=== PATIENT | male | born 1945 | race Caucasian/White ===

== ENCOUNTER 2017-04-01 18:35 | Inpatient (IN) | payer MEDICARE, SELFPAY ==
[2017-04-01 18:40] VITALS: BP 120/58; PULSE 129; RESP 20; TEMP 36.8; O2SAT 100
[2017-04-01 18:51] VITALS: BMI 38.0
[2017-04-01 18:55] VITALS: PULSE 129
[2017-04-01 18:57] VITALS: BMI 38.0
--- NOTE | 2017-04-01 19:05 | PCM.HP.STD ---
Problem List (1) Neutropenic fever Status: Acute (2) Sepsis Status: Acute (3) Leukemia Status: Chronic (4) Non-Hodgkin lymphoma Status: Resolved (5) Testicular cancer Status: Resolved (6) Aortic stenosis Status: Chronic (7) HTN (hypertension) Status: Chronic (8) Hyperlipidemia Status: Chronic (9) DM2 (diabetes mellitus, type 2) Status: Chronic History of Present Illness Date of Admission: 04/01/17 Chief Complaint: fever and shortness of breath The patient is a 71 year old M presents with fever and shortness of breath. Symptoms began [place] Pamela and have persisted. Patient is become more short of breath. Patient presented to [facility] with these complaints. Patient had chest x-ray that was unremarkable. Patient was found to be pancytopenic. Case was discussed with Dr. Eller, on-call for the patient's oncologist, Dr. Hill, and stated that he would see the patient in consultation at the patient was transferred to [place]. Given the patient's neutropenia, patient received vancomycin and meropenem. Additionally, the patient received IV fluids as well as Tylenol. Patient was requesting transfer to [facility]. Patient denies any sick contacts that he is aware of. Patient has been recently undergone his second round of chemotherapy for leukemia, unspecified type per the patient,. His last chemotherapy was about 7 days ago. Patient has been coughing and he is short of breath. Says he gets more short of breath when his fever goes up. He denies any rashes that he is aware of. Does state that he is congested up in his head. [] Past Medical History Past Medical History (Chronic Problems): Chronic Problems Leukemia (Chronic) Aortic stenosis (Chronic) HTN (hypertension) (Chronic) Hyperlipidemia (Chronic) DM2 (diabetes mellitus, type 2) (Chronic) Allergies Penicillins [PCN] Allergy (Verified 03/20/17 08:37) Other Sulfa (Sulfonamide Antibiotics) Allergy (Verified 03/20/17 08:37) Rash gabapentin Adverse Reaction (Verified 03/20/17 08:37) Other Home Medications: Ambulatory Orders Medication Instructions Recorded Allopurinol [Zyloprim] 300 mg PO DAILY 07/24/14 Clopidogrel Bisulfate [Plavix] 75 mg PO DAILY 07/24/14 Diltiazem HCl [Diltiazem ER] 1 tablet PO DAILY 07/24/14 Metformin(XR) [Glucophage Xr] 500 mg PO BID 07/24/14 Quinapril HCl [Accupril] 40 mg PO DAILY 07/24/14 Rosuvastatin Calcium [Crestor] 20 mg PO QHS 07/24/14 Duloxetine Hcl [Cymbalta] 60 mg PO QHS 03/15/17 Ergocalciferol [Vitamin D] 50,000 unit PO Q7D 03/15/17 Ferrous Sulfate [Iron] 325 mg PO BID 03/15/17 Furosemide [Lasix] 40 mg PO DAILY 03/15/17 Multivitamin [Multiple Vitamins] 1 each PO DAILY 03/15/17 Nitroglycerin [Nitrostat] 0.4 mg SUBLINGUAL Q5M PRN 03/15/17 Ondansetron [Zofran] 8 mg PO Q8H PRN PRN 03/15/17 Paroxetine HCl [Paxil] 30 mg PO DAILY 03/15/17 TraMADol [Ultram (G)] 50 mg PO Q6H PRN PRN 03/15/17 Psychiatric History: Depression Smoking Status: Never smoker Tobacco Use: Non-smoker Alcohol: None Drugs: None - *Family History Maternal History Items: Heart Disease - of a ruptured aneurysm Paternal History Items: Heart Disease Review of Systems Constitutional: Reports: Chills, Fever, Malaise, Weakness, Fatigue. Denies: Night Sweats Eyes: Denies: Blurred vision, Double vision HEENT: Reports: Nasal Congestion, Sore Throat. Denies: Head Aches, Sinus Congestion, Sinus Drainage Cardiovascular: Denies: Chest Pain, Palpitations Respiratory: Reports: Cough, Shortness of Breath Gastrointestinal: Denies: Abdominal Pain, Nausea, Vomiting Genitourinary: Denies: Dysuria, Incontinence Musculoskeletal: Denies: Joint Pain, Joint Tenderness Skin: Denies: Rash, Wounds Neurological: Denies: Numbness, Tingling, Focal weakness Psychiatric: Reports: Depression. Denies: Anxiety Endocrine: Denies: Change in Body Habitus, Heat/ Cold Intolerance Hematologic/ Lymphatic: Denies: Easy Bruising, Easy Bleeding, Hx of blood clot VTE Information - Inpt Only VTE Present on Admission: No VTE Mechan Device Prophylaxis: SCD's VTE Pharm Prophylaxis ordered?: No Patient Problems: Active and Suspected Problems Neutropenic fever (Acute) Sepsis (Acute) - Physical Exam General: Alert, Cooperative, No apparent distress, Well developed, Well nourished HEENT: Atraumatic, Normocephalic, - - Some blood on the medial sclera of the right eye not involving the iris or pupil. Oral: Moist Mucosa, No Gingival or Mucosal Lesions/ Ulcerations Neck: No Nodes, Thyroid Normal Size and Texture Lungs: No rhonchi, No wheeze, Diminished Cardiovascular: Regular rate, Regular Rhythm, Normal S1, Normal S2, No murmurs Abdomen: Bowel Sounds Present, Soft, Non Tender, Non-Distended, No Hepato-splenomegaly, Obese Extremities: No edema, No Calf Tenderness Skin: No rashes, No breakdown Musculoskeletal: No Tenderness to Palpation of Joints or Extremities, No Muscle Wasting Neurological: Neuro grossly intact, Sensory exam intact to light touch and pain Psych/Mental Status: Normal Affect, Appropriate Vital Signs Temp Pulse Resp BP Pulse Ox 36.8 C 129 H 20 H 120/58 L 100 04/01/17 18:40 04/01/17 18:40 04/01/17 18:40 04/01/17 18:40 04/01/17 18:40 Oxygen Flow Rate 2 Oxygen Delivery Method Nasal Cannula Weight: 113.4 kg Body Mass Index (BMI) 38.0 Chest x-ray report from [facility] was unremarkable. CBC showed a white count of 1.2, hemoglobin 7.9, platelets 84. Patient had 12 bands. Influenza a and B were negative. D-dimer was 0.65 Urinalysis was unremarkable BMP showed a sodium 130, potassium 4.5, BUN is 16.9, creatinine of 1. Troponin was 0.6. BNP was 4272 EKG showed sinus tachycardia right bundle branch block left anterior fascicular block. No prior EKGs available to be compared to. Assessment/Plan Active and Suspected Problems Neutropenic fever (Acute) Sepsis (Acute) 1. Sepsis present on admission Unclear source. Perform blood cultures. 2. Neutropenic fever Continue with meropenem, vancomycin not further necessary at this time. Follow-up cultures 3. Neutropenia I do not have baseline labs of this patient to compare to Dr. Eller will be on consultation 4. Leukemia Last chemotherapy was about 1 week ago Consult oncology for further input 5. Elevated troponin Cycle troponins Cardiology consult Echocardiogram May be due to demand from the patient's sepsis and underlying infection 6. Diabetes mellitus type 2 hold metformin for now NovoLog sliding scale for now 7. DVT prophylaxis with SCDs Code Visit Inpatient E&M: 10794 Init Hosp L3
--- NOTE | 2017-04-01 19:15 | HP.PCM_ITS ---
Problem List (1) Neutropenic fever Status: Acute (2) Sepsis Status: Acute (3) Leukemia Status: Chronic (4) Non-Hodgkin lymphoma Status: Resolved (5) Testicular cancer Status: Resolved (6) Aortic stenosis Status: Chronic (7) HTN (hypertension) Status: Chronic (8) Hyperlipidemia Status: Chronic (9) DM2 (diabetes mellitus, type 2) Status: Chronic History of Present Illness Date of Admission: 04/01/17 Chief Complaint: fever and shortness of breath The patient is a 71 year old M presents with fever and shortness of breath. Symptoms began [place] Pamela and have persisted. Patient is become more short of breath. Patient presented to [facility] with these complaints. Patient had chest x-ray that was unremarkable. Patient was found to be pancytopenic. Case was discussed with Dr. Eller, on-call for the patient's oncologist, Dr. Hill, and stated that he would see the patient in consultation at the patient was transferred to [place]. Given the patient's neutropenia, patient received vancomycin and meropenem. Additionally, the patient received IV fluids as well as Tylenol. Patient was requesting transfer to [facility]. Patient denies any sick contacts that he is aware of. Patient has been recently undergone his second round of chemotherapy for leukemia, unspecified type per the patient,. His last chemotherapy was about 7 days ago. Patient has been coughing and he is short of breath. Says he gets more short of breath when his fever goes up. He denies any rashes that he is aware of. Does state that he is congested up in his head. [] Past Medical History Past Medical History (Chronic Problems): Chronic Problems Leukemia (Chronic) Aortic stenosis (Chronic) HTN (hypertension) (Chronic) Hyperlipidemia (Chronic) DM2 (diabetes mellitus, type 2) (Chronic) Allergies Penicillins [PCN] Allergy (Verified 03/20/17 08:37) Other Sulfa (Sulfonamide Antibiotics) Allergy (Verified 03/20/17 08:37) Rash gabapentin Adverse Reaction (Verified 03/20/17 08:37) Other Home Medications: Ambulatory Orders Medication Instructions Recorded Allopurinol [Zyloprim] 300 mg PO DAILY 07/24/14 Clopidogrel Bisulfate [Plavix] 75 mg PO DAILY 07/24/14 Diltiazem HCl [Diltiazem ER] 1 tablet PO DAILY 07/24/14 Metformin(XR) [Glucophage Xr] 500 mg PO BID 07/24/14 Quinapril HCl [Accupril] 40 mg PO DAILY 07/24/14 Rosuvastatin Calcium [Crestor] 20 mg PO QHS 07/24/14 Duloxetine Hcl [Cymbalta] 60 mg PO QHS 03/15/17 Ergocalciferol [Vitamin D] 50,000 unit PO Q7D 03/15/17 Ferrous Sulfate [Iron] 325 mg PO BID 03/15/17 Furosemide [Lasix] 40 mg PO DAILY 03/15/17 Multivitamin [Multiple Vitamins] 1 each PO DAILY 03/15/17 Nitroglycerin [Nitrostat] 0.4 mg SUBLINGUAL Q5M PRN 03/15/17 Ondansetron [Zofran] 8 mg PO Q8H PRN PRN 03/15/17 Paroxetine HCl [Paxil] 30 mg PO DAILY 03/15/17 TraMADol [Ultram (G)] 50 mg PO Q6H PRN PRN 03/15/17 Psychiatric History: Depression Smoking Status: Never smoker Tobacco Use: Non-smoker Alcohol: None Drugs: None - *Family History Maternal History Items: Heart Disease - of a ruptured aneurysm Paternal History Items: Heart Disease Review of Systems Constitutional: Reports: Chills, Fever, Malaise, Weakness, Fatigue. Denies: Night Sweats Eyes: Denies: Blurred vision, Double vision HEENT: Reports: Nasal Congestion, Sore Throat. Denies: Head Aches, Sinus Congestion, Sinus Drainage Cardiovascular: Denies: Chest Pain, Palpitations Respiratory: Reports: Cough, Shortness of Breath Gastrointestinal: Denies: Abdominal Pain, Nausea, Vomiting Genitourinary: Denies: Dysuria, Incontinence Musculoskeletal: Denies: Joint Pain, Joint Tenderness Skin: Denies: Rash, Wounds Neurological: Denies: Numbness, Tingling, Focal weakness Psychiatric: Reports: Depression. Denies: Anxiety Endocrine: Denies: Change in Body Habitus, Heat/ Cold Intolerance Hematologic/ Lymphatic: Denies: Easy Bruising, Easy Bleeding, Hx of blood clot VTE Information - Inpt Only VTE Present on Admission: No VTE Mechan Device Prophylaxis: SCD's VTE Pharm Prophylaxis ordered?: No Patient Problems: Active and Suspected Problems Neutropenic fever (Acute) Sepsis (Acute) - Physical Exam General: Alert, Cooperative, No apparent distress, Well developed, Well nourished HEENT: Atraumatic, Normocephalic, - - Some blood on the medial sclera of the right eye not involving the iris or pupil. Oral: Moist Mucosa, No Gingival or Mucosal Lesions/ Ulcerations Neck: No Nodes, Thyroid Normal Size and Texture Lungs: No rhonchi, No wheeze, Diminished Cardiovascular: Regular rate, Regular Rhythm, Normal S1, Normal S2, No murmurs Abdomen: Bowel Sounds Present, Soft, Non Tender, Non-Distended, No Hepato- splenomegaly, Obese Extremities: No edema, No Calf Tenderness Skin: No rashes, No breakdown Musculoskeletal: No Tenderness to Palpation of Joints or Extremities, No Muscle Wasting Neurological: Neuro grossly intact, Sensory exam intact to light touch and pain Psych/Mental Status: Normal Affect, Appropriate Vital Signs Temp Pulse Resp BP Pulse Ox 36.8 C 129 H 20 H 120/58 L 100 04/01/17 18:40 04/01/17 18:40 04/01/17 18:40 04/01/17 18:40 04/01/17 18:40 Oxygen Flow Rate 2 Oxygen Delivery Method Nasal Cannula Weight: 113.4 kg Body Mass Index (BMI) 38.0 Chest x-ray report from [facility] was unremarkable. CBC showed a white count of 1.2, hemoglobin 7.9, platelets 84. Patient had 12 bands. Influenza a and B were negative. D-dimer was 0.65 Urinalysis was unremarkable BMP showed a sodium 130, potassium 4.5, BUN is 16.9, creatinine of 1. Troponin was 0.6. BNP was 4272 EKG showed sinus tachycardia right bundle branch block left anterior fascicular block. No prior EKGs available to be compared to. Assessment/Plan Active and Suspected Problems Neutropenic fever (Acute) Sepsis (Acute) 1. Sepsis present on admission Unclear source. Perform blood cultures. 2. Neutropenic fever Continue with meropenem, vancomycin not further necessary at this time. Follow-up cultures 3. Neutropenia I do not have baseline labs of this patient to compare to Dr. Eller will be on consultation 4. Leukemia Last chemotherapy was about 1 week ago Consult oncology for further input 5. Elevated troponin Cycle troponins Cardiology consult Echocardiogram May be due to demand from the patient's sepsis and underlying infection 6. Diabetes mellitus type 2 hold metformin for now NovoLog sliding scale for now 7. DVT prophylaxis with SCDs Code Visit Inpatient E&M: 36218 Init Hosp L3
--- NOTE | 2017-04-01 19:32 | ECHOCS_ITS ---
Reason For Study: Elevated Troponins Procedure This was a 2D Doppler, Color Flow transthoracic echocardiogram. Exam performed portable in patient room. Left Ventricle Normal LV size. Mild concentric left ventricular hypertrophy. D shaped septum in diastole. The estimated ejection fraction is 55 %. No regional wall motion abnormalities noted. Right Ventricle Moderately dilated right ventricle. Mild to moderate global right ventricular systolic dysfunction. Mitral Valve There is moderate mitral annular calcification. Moderate (2+) eccentric mitral valve insufficiency. Tricuspid Valve Normal tricuspid valve. Mild to moderate (1-2+) tricuspid valve insufficiency. Pulmonary artery systolic pressure is 45 mmHg. Mild pulmonary hypertension. Aortic Valve Trisinus/trileaflet aortic valve. Mild focal aortic valve calcification. Peak aortic valve gradient 42 mmHg. Mean aortic valve gradient 22 mmHg. Moderate aortic stenosis. Calculated aortic valve area (continuity equation) is 1.0 cm2. Pulmonic Valve Normal pulmonic valve. Mild (1+) pulmonic valve insufficiency. Great Vessels Normal aortic root. The pulmonary artery is normal size. Normal inferior vena cava. Pericardium/Pleural No pericardial effusion. Medication Diluted definity 3ml given slow IV push to enhance endocardial definition. MMode/2D Measurements & Calculations LVIDd: 4.9 cm IVSd: 1.3 cm LVOT diam: 2.0 cm LVIDs: 3.2 cm LVPWd: 1.3 cm LVOT area: 3.2 cm2 RVDd: 3.7 cm FS: 34.1 % Ao root diam: 3.3 cm Aortic Valve Planimetry: 1.0 cm2 ACS: 0.97 cm LA dimension: 4.4 cm Time Measurements MV dec time: 0.23 sec Doppler Measurements & Calculations MV E max eric: 176.1 cm/sec Lat Peak E' Eric: 12.0 cm/sec MV V2 max: 213.8 cm/sec MV A max eric: 164.9 cm/sec E/E' lat: 14.7 MV max P.3 mmHg MV E/A: 1.1 MV V2 mean: 138.7 cm/sec MV mean P.1 mmHg MV V2 VTI: 52.0 cm MVA(VTI): 1.4 cm2 MV P1/2t max eric: 213.8 cm/sec Ao V2 max: 325.7 cm/sec LV V1 max: 103.9 cm/sec MV P1/2t: 88.7 msec Ao max P.4 mmHg LV V1 max P.3 mmHg MV dec slope: 706.3 cm/sec2 Ao V2 mean: 213.0 cm/sec LV V1 mean P.5 mmHg MVA(P1/2t): 2.5 cm2 Ao mean P.9 mmHg LV V1 mean: 74.6 cm/sec Ao V2 VTI: 62.1 cm LV V1 VTI: 23.3 cm CONNOR(I,D): 1.2 cm2 CONNOR(V,D): 1.0 cm2 MR max eric: 485.3 cm/sec SV(LVOT): 74.5 ml PA V2 max: 118.5 cm/sec MR max P.2 mmHg MR mean eric: 366.8 cm/sec MR mean P.3 mmHg MR VTI: 103.2 cm TR max eric: 317.4 cm/sec TR max P.3 mmHg Interpretation Summary Normal LV size. Mild concentric left ventricular hypertrophy. The estimated ejection fraction is 55 %. Moderately dilated right ventricle. Moderate aortic stenosis. Mild focal aortic valve calcification. D shaped septum in diastole. Mild pulmonary hypertension. Ordering Physician: Tavo Rick Referring Physician: Denae Goldstein Performed By: Spencer Burton RCS
[2017-04-01 21:16] VITALS: BP 122/53; PULSE 125; RESP 20; TEMP 37.6; O2SAT 100
--- NOTE | 2017-04-01 21:42 | EKG12_ITS ---
Test Reason : ELEV TROP Blood Pressure : / mmHG Vent. Rate : 121 BPM Atrial Rate : 121 BPM P-R Int : 130 ms QRS Dur : 146 ms QT Int : 354 ms P-R-T Axes : 068 -56 049 degrees QTc Int : 502 ms Sinus tachycardia Right bundle branch block Left anterior fascicular block Bifascicular block Abnormal ECG No previous ECGs available Confirmed by DAVID JOHNSON, REHAN ([id number]), film editor supervisor JOSELUIS GILBERT ([id number]) on 04/08/2017 4:19:24 PM Referred By: DR SANDS Confirmed By:REHAN HERNANDEZ MD
[2017-04-01] MEDS: dilTIAZem CD 180 MG Capsule PO (22:11)
[2017-04-01] MEDS: Atorvastatin Calcium 40 MG Tablet PO (22:11)
[2017-04-01] MEDS: Ferrous Sulfate 325 MG Tablet PO (22:11)
[2017-04-01] MEDS: Aspirin 81 MG TAB.CHEW PO (22:11)
[2017-04-01] MEDS: DULoxetine Hcl 60 MG Capsule PO (22:11)
[2017-04-01] MEDS: Furosemide 40 MG Tablet PO (22:12)
[2017-04-01] MEDS: PARoxetine 10 MG Tablet 30 MG PO (22:12)
[2017-04-01] MEDS: Clopidogrel Bisulfate 75 MG Tablet PO (22:13)
[2017-04-01] MEDS: Allopurinol 300 MG Tablet PO (22:13)
[2017-04-01] MEDS: Acetaminophen 325 MG Tablet 650 MG PO (22:55)
[2017-04-01 22:56] LABS: Bedside Glucose 134 mg/dL (70-110)
[2017-04-01 23:37] VITALS: PULSE 121
[2017-04-02] VITALS (25 sets, daily range): BP systolic 74–111; BP diastolic 35–56; PULSE 83–125; RESP 18–30; TEMP 36.4–37.6; O2SAT 94–100
--- NOTE | 2017-04-02 00:23 | NURSING ---
Pill found on pts floor by resp. therapy. Confirmed with pharmacy that pill is a lisinopril 40mg tablet. Will get pt replacement dosing.
[2017-04-02] MEDS: Lisinopril 40 MG Tablet PO (00:33)
[2017-04-02 01:02] LABS: BNP,B-Type NATRIURETIC PEPTIDE 563.4 pg/mL (0-100)
[2017-04-02 04:08] LABS: Bacteria 0 SEEN /hpf (None Seen); Mucous, Urine 0 SEEN /hpf (<or=2+); Red Blood Cells-Urine 0 SEEN /hpf (0-5); White Blood Cells 0 SEEN /hpf (0-5)
[2017-04-02 04:11] LABS: Color, Urine Yellow (Yellow); Glucose, Dipstick Normal (Normal); Ketone-Dipstick Negative (Negative); Leukocyte Esterase-Dipstick Negative /ul (Negative); Nitrite-Dipstick Negative (Negative); Occult Blood-Urine 10 /ul (Negative); Protein-Dipstick 30 mg/dl (Negative); Urine Bilirubin Dipstick Negative (Negative); Urine Clarity Clear (Clear); Urine Urobilinogen 1 mg/dl (Normal)
[2017-04-02 04:14] LABS: Absolute Lymphocyte Count 0.46 X10^3/ul (0.83-4.51); Absolute Neutrophil Count 0.5 X10^3/uL (2.0-7.7); Eosinophil# 0.01 X10^3/uL; Eosinophils% 0.9 % (0-5); Hematocrit 21.6 % (40-54); Hemoglobin 7.1 g/dl (13.0-16.5); Lymphocyte # 0.46 X10^3/ul (4.0); Lymphocyte % 43.4 % (19-41); Mean Corp Hgb Conc 32.9 g/gl (32-36); Mean Corpuscular Hgb 35.9 pg (27.0-32.0); Mean Corpuscular Volume 109.1 fL (80-94); Mean Platelet Vol. 9.4 fl (6.2-12.0); Monocyte# 0.09 X10^3/uL; Monocyte% 8.5 % (0-10); Neutrophil # 0.49 X10^3/uL (2.7-7.7); Neutrophil % 46.3 % (47-70); Platelet Count 81 K/mm3 (150-450); RBC Distribution Width CV 19.9 % (11.6-14.6); Red Blood Count 1.98 M/mm3 (4.6-6.2)
[2017-04-02 04:16] LABS: Differential Indicated SCAN CRITERIA MET; POSITIVE COUNT YES; POSITIVE DIFFERENTIAL YES; POSITIVE MORPHOLOGY YES; White Blood Count 1.1 K/mm3 (4.4-11.0)
[2017-04-02 04:18] LABS: Squamous Epithelial Cells - UA 0-5 SEEN /hpf (0-5)
[2017-04-02 04:20] LABS: Anion Gap 9 (5-15); BUN 17 mg/dL (7-18); Calcium,Total 8.9 mg/dL (8.5-10.1); Chloride 96 mmol/L (98-107); Cholesterol 91 mg/dL (200); EST Glomerular Filtration Rate 79 mL/min (>60); Est Glom Filt Rate - Afr Amer 95 mL/min (>60); Estimated Creatinine Clearance 67.45 ml/min; Glucose 142 mg/dL (70-110); High Density Lipoprotein 51 mg/dL; Potassium 3.7 mmol/L (3.5-5.1); Sodium Level 130 mmol/L (136-145); Triglycerides 60 mg/dL; Very Low Density Lipoprotein 12 mg/dL (5-40)
[2017-04-02] MEDS: Ipratropium/Albuterol Sulfate 3 ML AMPUL.NEB INHALATION ×4 (04:39→19:27)
[2017-04-02] MEDS: Furosemide 40 MG/4 ML Vial IV (04:57)
[2017-04-02 05:11] LABS: Anisocytosis 1+; Macrocytosis 2+; Platelet Estimate MOD DEC (ADEQ)
[2017-04-02] MEDS: Acetaminophen 325 MG Tablet 650 MG PO ×3 (05:50→19:04)
[2017-04-02 06:56] LABS: Bedside Glucose 173 mg/dL (70-110)
--- NOTE | 2017-04-02 08:02 | NURSING ---
phone call received from [facility], patient test back positive for flu.
--- NOTE | 2017-04-02 08:08 | CON.PCM_ITS ---
Reason for Consult Date of Consultation: 04/02/17 History of Present Illness: The patient is a 71 year old M with no previous cardiac history but recently diagnosed with leukemia who is being followed by the oncologist. He presented to an outside hospital because he was not feeling well he was noted to be pancytopenic and for reasons that are not entirely clear her troponin was obtained which were noted to be abnormal. He was therefore referred for cardiology to see. He is denied any chest pain shortness of breath or paroxysmal nocturnal dyspnea he has been incredibly weak he has not had any palpitations no differential dizziness no diaphoresis no near syncope or syncope. This morning his overall condition is essentially unchanged. [] Past Medical History Allergies/Adverse Reactions: Allergies Penicillins [PCN] Allergy (Verified 03/20/17 08:37) Other Sulfa (Sulfonamide Antibiotics) Allergy (Verified 03/20/17 08:37) Rash gabapentin Adverse Reaction (Verified 03/20/17 08:37) Other Home Medications: Ambulatory Orders Medication Instructions Recorded Allopurinol [Zyloprim] 300 mg PO DAILY 07/24/14 Clopidogrel Bisulfate [Plavix] 75 mg PO DAILY 07/24/14 Diltiazem HCl [Diltiazem ER] 1 tablet PO DAILY 07/24/14 Metformin(XR) [Glucophage Xr] 500 mg PO BID 07/24/14 Quinapril HCl [Accupril] 40 mg PO DAILY 07/24/14 Rosuvastatin Calcium [Crestor] 20 mg PO QHS 07/24/14 Duloxetine Hcl [Cymbalta] 60 mg PO QHS 03/15/17 Ergocalciferol [Vitamin D] 50,000 unit PO Q7D 03/15/17 Ferrous Sulfate [Iron] 325 mg PO BID 03/15/17 Furosemide [Lasix] 40 mg PO DAILY 03/15/17 Multivitamin [Multiple Vitamins] 1 each PO DAILY 03/15/17 Nitroglycerin [Nitrostat] 0.4 mg SUBLINGUAL Q5M PRN 03/15/17 Ondansetron [Zofran] 8 mg PO Q8H PRN PRN 03/15/17 Paroxetine HCl [Paxil] 30 mg PO DAILY 03/15/17 TraMADol [Ultram (G)] 50 mg PO Q6H PRN PRN 03/15/17 Past Medical History (Chronic Problems): Chronic Problems Leukemia (Chronic) Aortic stenosis (Chronic) HTN (hypertension) (Chronic) Hyperlipidemia (Chronic) DM2 (diabetes mellitus, type 2) (Chronic) Psychiatric History: Depression - *Family History Maternal History Items: Heart Disease - of a ruptured aneurysm Paternal History Items: Heart Disease Smoking Status: Never smoker Tobacco Use: Non-smoker Alcohol: None Drugs: None Review of Systems - Review of Systems General: Reports: Fever, Fatigue, Malaise, Weakness. Denies: Night Sweats Cardiovascular: Reports: Shortness of Breath, Shortness of Breath with Exertion. Denies: Chest Discomfort, Orthopnea, PND, Peripheral Edema, Palpitations, Lightheadedness, Dizziness, Near Syncope, Syncope Respiratory: Reports: Cough. Denies: Sputum Production, Hemoptysis Gastrointestinal: Denies: Hematemesis, Hematochezia, Melena Genitourinary: Denies: Dysuria, Hematuria Skin: Denies: Rash Subjectve: Pleasant gentleman in no apparent distress Objective: Vital Signs Temp Pulse Resp BP Pulse Ox 98.3 F 122 H 30 H 111/41 L 98 04/02/17 04:23 04/02/17 04:40 04/02/17 04:40 04/02/17 04:23 04/02/17 04:40 Oxygen Flow Rate 3 Oxygen Delivery Method Nasal Cannula Weight: 250 lb 0.067 oz Body Mass Index (BMI) 38.0 Intake and Output for Last 24 Hours 03/31/17 04/01/17 04/02/17 23:59 23:59 23:59 Intake Total 240 / 240 610 / 610 Output Total 200 / 200 400 / 400 Balance 40 / 40 210 / 210 General: Awake, Alert, Oriented x 3 HEENT: PERRL, EOMI, Sclera Non Icteric Neck: Supple, Good ROM, No Lymph Node Enlargement Lungs: Clear to auscultation Cardiovascular: Regular Rhythm, Normal S1, Normal S2, No Rubs, No Gallops Murmur Murmur: Grade 1/6, Early Systolic, LLSB Vascular: No Carotid Bruits, Normal Femoral Pulses, Normal Radial Pulses, Normal Dorsalis Pedal Pulse, Normal Posterior Tibial Pulses Abdomen: Bowel Sounds Present, Soft, Non Tender, No HSM, No Organomegaly Extremities: No Cyanosis, No Clubbing, No edema Neurological: No Focal Motor or Sensory Deficit 04/01/17 20:17: Troponin I 0.67 H* 04/01/17 22:25: Troponin I 0.72 H* 04/01/17 22:25: Urine Color Yellow, Urine Clarity Clear, Urine pH 6.0, Ur Specific [place] 1.020, Urine Protein 30 H, Urine Glucose (UA) Normal, Urine Ketones Negative, Urine Occult Blood 10 H, Urine Nitrite Negative, Urine Bilirubin Negative, Urine Urobilinogen 1 H, Ur Leukocyte Esterase Negative, Urine RBC 0 SEEN, Urine WBC 0 SEEN 04/02/17 00:13: B-Natriuretic Peptide 563.4 H 04/02/17 03:18: Sodium 130 L, Potassium 3.7, Chloride 96 L, Carbon Dioxide 25.0 , Anion Gap 9, BUN 17, Creatinine 1.00, Est GFR (MDRD) Af Amer 95, Est GFR (MDRD ) Non-Af 79, BUN/Creatinine Ratio 17.0, Glucose 142 H, Calcium 8.9, Troponin I 0.88 H*, Triglycerides 60, Cholesterol 91, LDL Cholesterol 28, VLDL Cholesterol 12, HDL Cholesterol 51 04/02/17 03:18: WBC 1.1 L*, RBC 1.98 L, Hgb 7.1 L, Hct 21.6 L, MCV 109.1 H, MCH 35.9 H, MCHC 32.9, RDW 19.9 H, RDW Differential 79.0 H, Plt Count 81 L, MPV 9.4 , Immature Gran % (Auto) 0.900, Neut % (Auto) 46.3 L, Lymph % (Auto) 43.4 H, [place] % (Auto) 8.5, Eos % (Auto) 0.9, Baso % (Auto) 0.0, Absolute Neuts (auto) 0.5 L, Total Counted Not Reportable Rhythm: EKG: Sinus tachycardia with a right bundle branch block and left anterior fascicular block Assessment/Plan 1. Abnormal cardiac enzymes-NSTEMI The above is likely secondary to demand ischemia with fixed coronary artery disease. At this time the patient is asymptomatic and my recommendation would be to keep him on statin , control his heart rate and obtain an echocardiogram to assess his left ventricular function. Further recommendations will be made based on the results of the above tests. 2. 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 He is on Cardizem and we may want to optimize the above. 3. Valvular heart disease with aortic stenosis. Does have evidence of aortic stenosis. We will obtain an echocardiogram to assess his left ventricular function. Further recommendations will be made based on the basis of the above. Thank you for allowing me to participate in his care.
--- NOTE | 2017-04-02 08:08 | PCM.CONS.B ---
- Consult Date of Consult: 04/02/[address] Zack rahman patient with acute leukemia/MDS present with febrile neutropenia/sepsis. My final recommendation will be communicated by electronic medical record and to Dr. Landis - Reason for Consult Sepsis/neutropenic fever Anemia Acute myelogenous leukemia/MDS receiving chemotherapy-[place] History of Present Illness Date of Admission: 04/01/17 Chief Complaint: fever and shortness of breath The patient is a 71 year old M presents with fever and shortness of breath. Symptoms began [place] Pam[place] and have persisted. Patient is become more short of breath. Patient presented to [facility] with shortness of breath. Patient had chest x-ray that was unremarkable & he denies any chest pain. Patient was found to be pancytopenic (anemia and neutropenia). The patient was transferred to [place]. Given the patient's neutropenia, patient received vancomycin and meropenem in ER. Additionally, the patient received IV fluids as well as Tylenol. His initial respiratory viral panel was positive for influenza. Patient has been recently undergone his second round of chemotherapy- Azacytidine for acute leukemia / MDS His last chemotherapy was about 8 days ago (oren). Patient has been coughing and he is short of breath x 3-4 days. Says he gets more short of breath when his fever day before admission. He denies any rashes, headaches or urinary symptom. Past Medical History Past Medical History (Chronic Problems): Chronic Problems Acute Leukemia / MDS (Chronic) Aortic stenosis (Chronic) HTN (hypertension) (Chronic) Hyperlipidemia (Chronic) DM2 (diabetes mellitus, type 2) (Chronic) Allergies Penicillins [PCN] Allergy (Verified 03/20/17 08:37) Other Sulfa (Sulfonamide Antibiotics) Allergy (Verified 03/20/17 08:37) Rash gabapentin Adverse Reaction (Verified 03/20/17 08:37) Other Home Medications: Ambulatory Orders Medication Instructions Recorded Allopurinol [Zyloprim] 300 mg PO DAILY 07/24/14 Clopidogrel Bisulfate [Plavix] 75 mg PO DAILY 07/24/14 Diltiazem HCl [Diltiazem ER] 1 tablet PO DAILY 07/24/14 Metformin(XR) [Glucophage Xr] 500 mg PO BID 07/24/14 Quinapril HCl [Accupril] 40 mg PO DAILY 07/24/14 Rosuvastatin Calcium [Crestor] 20 mg PO QHS 07/24/14 Duloxetine Hcl [Cymbalta] 60 mg PO QHS 03/15/17 Ergocalciferol [Vitamin D] 50,000 unit PO Q7D 03/15/17 Ferrous Sulfate [Iron] 325 mg PO BID 03/15/17 Furosemide [Lasix] 40 mg PO DAILY 03/15/17 Multivitamin [Multiple Vitamins] 1 each PO DAILY 03/15/17 Nitroglycerin [Nitrostat] 0.4 mg SUBLINGUAL Q5M PRN 03/15/17 Ondansetron [Zofran] 8 mg PO Q8H PRN PRN 03/15/17 Paroxetine HCl [Paxil] 30 mg PO DAILY 03/15/17 TraMADol [Ultram (G)] 50 mg PO Q6H PRN PRN 03/15/17 Psychiatric History: Depression Smoking Status: Never smoker Tobacco Use: Non-smoker Alcohol: None Drugs: None - *Family History Maternal History Items: Heart Disease - of a ruptured aneurysm Paternal History Items: Heart Disease Review of Systems Constitutional: Reports: Chills, Fever, Malaise, Weakness, Fatigue x one week Denies: Night Sweats Eyes: Denies: Blurred vision, Double vision HEENT: Reports: Nasal Congestion, Sore Throat. Denies: Head Aches, Sinus Congestion, Sinus Drainage Cardiovascular: Denies: Chest Pain, Palpitations Respiratory: Reports: Cough, Shortness of Breath Gastrointestinal: Denies: Abdominal Pain, Nausea, Vomiting Genitourinary: Denies: Dysuria, Incontinence Musculoskeletal: Denies: Joint Pain, Joint Tenderness Skin: Denies: Rash, Wounds Neurological: Denies: Numbness, Tingling, Focal weakness Psychiatric: Reports: Depression. Denies: Anxiety Endocrine: Denies: Change in Body Habitus, Heat/ Cold Intolerance Hematologic/ Lymphatic: Denies: Easy Bruising, Easy Bleeding, Hx of blood clot VTE Information - Inpt Only VTE Present on Admission: No VTE Mechan Device Prophylaxis: SCD's VTE Pharm Prophylaxis ordered?: No Patient Problems: Active and Suspected Problems Neutropenic fever (Acute) Sepsis (Acute) Symptomatic anemia (Acute) Fever, malaise and weakness (Acute) - Physical Exam General: Alert, Cooperative, No apparent distress, Well developed, Well nourished HEENT: Atraumatic, Normocephalic, - - Some blood on the medial sclera of the right eye not involving the iris or pupil. Oral: Moist Mucosa, No Gingival or Mucosal Lesions/ Ulcerations no petechiae Neck: No Nodes, Thyroid Normal Size and Texture Lungs: No rhonchi, No wheeze, Diminished + basilar rales Cardiovascular: Regular rate, Regular Rhythm, Normal S1, Normal S2, No murmurs Abdomen: Bowel Sounds Present, Soft, Non Tender, Non-Distended, No Hepato-splenomegaly, Obese Extremities: No edema, No Calf Tenderness Skin: No rashes, No breakdown Musculoskeletal: No Tenderness to Palpation of Joints or Extremities, No Muscle Wasting Neurological: Neuro grossly intact, Sensory exam intact to light touch and pain Psych/Mental Status: Normal Affect, Appropriate Vital Signs Temp Pulse Resp BP Pulse Ox 36.8 C 129 H 20 H 120/58 L 100 04/01/17 18:40 04/01/17 18:40 04/01/17 18:40 04/01/17 18:40 04/01/17 18:40 Oxygen Flow Rate 2 Oxygen Delivery Method Nasal Cannula Weight: 113.4 kg Body Mass Index (BMI) 38.0 [facility] from [facility] was unremarkable. EKG showed sinus tachycardia right bundle branch block left anterior fascicular block. No prior EKGs available to be compared to. Laboratory Results - last 24 hr 04/01/17 04/01/17 04/01/17 20:17 22:25 22:25 WBC RBC Hgb Hct MCV MCH MCHC RDW RDW Differential Plt Count MPV Immature Gran % (Auto) Neut % (Auto) Lymph % (Auto) [place] % (Auto) Eos % (Auto) Baso % (Auto) Absolute Neuts (auto) Absolute Lymphs (auto) Total Counted Differential Comment Diff Path Review Platelet Estimate Anisocytosis Macrocytosis Sodium Potassium Chloride Carbon Dioxide Anion Gap BUN Creatinine Estim Creat Clear Calc Est GFR (MDRD) Af Amer Est GFR (MDRD) Non-Af BUN/Creatinine Ratio Glucose Calcium Troponin I 0.67 H* 0.72 H* B-Natriuretic Peptide Triglycerides Cholesterol LDL Cholesterol VLDL Cholesterol HDL Cholesterol Urine Color Yellow Urine Clarity Clear Urine pH 6.0 Ur Specific [place] 1.020 Urine Protein 30 H Urine Glucose (UA) Normal Urine Ketones Negative Urine Occult Blood 10 H Urine Nitrite Negative Urine Bilirubin Negative Urine Urobilinogen 1 H Ur Leukocyte Esterase Negative Urine RBC 0 SEEN Urine WBC 0 SEEN Ur Squamous Epith Cells 0-5 SEEN Urine Bacteria 0 SEEN Urine Mucus 0 SEEN POC Glucose 04/01/17 04/02/17 04/02/17 22:29 00:13 03:18 WBC RBC Hgb Hct MCV MCH MCHC RDW RDW Differential Plt Count MPV Immature Gran % (Auto) Neut % (Auto) Lymph % (Auto) [place] % (Auto) Eos % (Auto) Baso % (Auto) Absolute Neuts (auto) Absolute Lymphs (auto) Total Counted Differential Comment Diff Path Review Platelet Estimate Anisocytosis Macrocytosis Sodium 130 L Potassium 3.7 Chloride 96 L Carbon Dioxide 25.0 Anion Gap 9 BUN 17 Creatinine 1.00 Estim Creat Clear Calc 67.45 Est GFR (MDRD) Af Amer 95 Est GFR (MDRD) Non-Af 79 BUN/Creatinine Ratio 17.0 Glucose 142 H Calcium 8.9 Troponin I 0.88 H* B-Natriuretic Peptide 563.4 H Triglycerides 60 Cholesterol 91 LDL Cholesterol 28 VLDL Cholesterol 12 HDL Cholesterol 51 Urine Color Urine Clarity Urine pH Ur Specific [place] Urine Protein Urine Glucose (UA) Urine Ketones Urine Occult Blood Urine Nitrite Urine Bilirubin Urine Urobilinogen Ur Leukocyte Esterase Urine RBC Urine WBC Ur Squamous Epith Cells Urine Bacteria Urine Mucus POC Glucose 134 H 04/02/17 04/02/17 03:18 06:49 WBC 1.1 L* RBC 1.98 L Hgb 7.1 L Hct 21.6 L MCV 109.1 H MCH 35.9 H MCHC 32.9 RDW 19.9 H RDW Differential 79.0 H Plt Count 81 L MPV 9.4 Immature Gran % (Auto) 0.900 Neut % (Auto) 46.3 L Lymph % (Auto) 43.4 H [place] % (Auto) 8.5 Eos % (Auto) 0.9 Baso % (Auto) 0.0 Absolute Neuts (auto) 0.5 L Absolute Lymphs (auto) 0.46 L Total Counted Not Reportable Differential Comment Diff Path Review May foll Platelet Estimate MOD DEC Anisocytosis 1+ Macrocytosis 2+ Sodium Potassium Chloride Carbon Dioxide Anion Gap BUN Creatinine Estim Creat Clear Calc Est GFR (MDRD) Af Amer Est GFR (MDRD) Non-Af BUN/Creatinine Ratio Glucose Calcium Troponin I B-Natriuretic Peptide Triglycerides Cholesterol LDL Cholesterol VLDL Cholesterol HDL Cholesterol Urine Color Urine Clarity Urine pH Ur Specific [place] Urine Protein Urine Glucose (UA) Urine Ketones Urine Occult Blood Urine Nitrite Urine Bilirubin Urine Urobilinogen Ur Leukocyte Esterase Urine RBC Urine WBC Ur Squamous Epith Cells Urine Bacteria Urine Mucus POC Glucose 173 H Assessment/Plan Active and Suspected Problems Neutropenic fever (Acute) Sepsis (Acute) Anemia (Acute) 1. Sepsis present on admission Unclear source. Pending blood cultures & urine culture. PLAN: -Monitor CBC daily -Continue meropenem pending blood culture 2. Neutropenic fever Follow-up cultures + Influenza A PLAN: - Start Mycelex 5 x daily - Check MRSA- PCR - Start Tamiflu daily 3. Neutropenia Secondary to acute leukemia and treatment. PLAN: -Neutropenic precaution & respiratory isolation -Monitor count daily. 4. Symptomatic anemia Last transfusion was about 1 month ago PLAN: -Type and cross 2 units irradiated, LD-RBC for transfusion today - Lasix 20mg IV between units - Keep hemoglobin > 8.5 gm/dl because of heart failure. 5. Elevated troponin Myocardial strain from fever and anemia PLAN: -Cardiology consult -Echocardiogram cc: Dr. Win Hill, Dr. Fernando Bar, Dr. Tavo Dixon
--- NOTE | 2017-04-02 08:39 | NURSING ---
EDUCATED ABOUT POSITIVE FOR FLU, EVERYONE NEEDS TO WEAR A MASK
[2017-04-02] MEDS: Ferrous Sulfate 325 MG Tablet PO ×2 (09:59→16:36)
[2017-04-02] MEDS: Allopurinol 300 MG Tablet PO (09:59)
[2017-04-02] MEDS: Multivitamins,Therapeutic Tablet 1 TABLET PO (09:59)
[2017-04-02] MEDS: Oseltamivir Phosphate 75 MG Capsule PO ×2 (10:00→21:29)
[2017-04-02] MEDS: Clotrimazole 10 MG Troche MUCOUS MEM ×4 (10:00→21:29)
[2017-04-02] MEDS: PARoxetine 10 MG Tablet 30 MG PO (10:00)
[2017-04-02] MEDS: dilTIAZem CD 180 MG Capsule PO (10:00)
[2017-04-02] MEDS: Furosemide 40 MG Tablet PO (10:01)
[2017-04-02] MEDS: Aspirin 81 MG TAB.CHEW PO (10:01)
[2017-04-02] MEDS: Clopidogrel Bisulfate 75 MG Tablet PO (10:02)
[2017-04-02 11:35] LABS: Bedside Glucose 166 mg/dL (70-110)
[2017-04-02 12:33] LABS: Pathologist Review Reviewed
--- NOTE | 2017-04-02 13:01 | PCM.PN.HOSP ---
Patient Problems: Active and Suspected Problems Neutropenic fever (Acute) Sepsis (Acute) Subjective: CC: Acute influenza A infection This is a 71 year old male who was transferred from the [facility] to significant pancytopenic. 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 He tested positive for influenza A and has been started on Tamiflu. Anemic with hemoglobin around 7 and was ordered to receive 2 units of packed RBCs. He is hypotensive and has decreased urine output. His troponin is elevated . Patient is alert and oriented to time place and person he denies any chest pain shortness of breath or palpitations. Vitals/I&O's: Vital Signs Temp Pulse Resp BP Pulse Ox 97.6 F L 89 20 H 90/40 L 99 04/02/17 12:10 04/02/17 12:10 04/02/17 12:10 04/02/17 12:10 04/02/17 12:10 Oxygen Flow Rate 2 Oxygen Delivery Method Nasal Cannula Weight: 113.4 kg Body Mass Index (BMI) 38.0 Intake and Output for Last 24 Hours 03/31/17 04/01/17 04/02/17 23:59 23:59 23:59 Intake Total 240 / 240 892 / 892 Output Total 200 / 200 400 / 400 Balance 40 / 40 492 / 492 General: Alert, Oriented x3 HEENT: Atraumatic Oral: Moist Mucosa Neck: Supple, No JVD Lungs: Clear to auscultation, Wheezes Cardiovascular: Normal S1, Normal S2 Abdomen: Bowel Sounds Present, Soft Extremities: No clubbing Skin: No rashes Laboratory Results 04/01/17 20:17: Troponin I 0.67 H* 04/01/17 22:25: Troponin I 0.72 H* 04/01/17 22:25: Urine Color Yellow, Urine Clarity Clear, Urine pH 6.0, Ur Specific [place] 1.020, Urine Protein 30 H, Urine Glucose (UA) Normal, Urine Ketones Negative, Urine Occult Blood 10 H, Urine Nitrite Negative, Urine Bilirubin Negative, Urine Urobilinogen 1 H, Ur Leukocyte Esterase Negative, Urine RBC 0 SEEN, Urine WBC 0 SEEN, Ur Squamous Epith Cells 0-5 SEEN, Urine Bacteria 0 SEEN, Urine Mucus 0 SEEN 04/01/17 22:29: POC Glucose 134 H 04/02/17 00:13: B-Natriuretic Peptide 563.4 H 04/02/17 03:18: Sodium 130 L, Potassium 3.7, Chloride 96 L, Carbon Dioxide 25.0, Anion Gap 9, BUN 17, Creatinine 1.00, Estim Creat Clear Calc 67.45, Est GFR (MDRD) Af Amer 95, Est GFR (MDRD) Non-Af 79, BUN/Creatinine Ratio 17.0, Glucose 142 H, Calcium 8.9, Troponin I 0.88 H*, Triglycerides 60, Cholesterol 91, LDL Cholesterol 28, VLDL Cholesterol 12, HDL Cholesterol 51 04/02/17 03:18: WBC 1.1 L*, RBC 1.98 L, Hgb 7.1 L, Hct 21.6 L, MCV 109.1 H, MCH 35.9 H, MCHC 32.9, RDW 19.9 H, RDW Differential 79.0 H, Plt Count 81 L, MPV 9.4, Immature Gran % (Auto) 0.900, Neut % (Auto) 46.3 L, Lymph % (Auto) 43.4 H, [place] % (Auto) 8.5, Eos % (Auto) 0.9, Baso % (Auto) 0.0, Absolute Neuts (auto) 0.5 L, Absolute Lymphs (auto) 0.46 L, Total Counted Not Reportable, Differential Comment , Diff Path Review Reviewed, Platelet Estimate MOD DEC, Anisocytosis 1+, Macrocytosis 2+ 04/02/17 06:49: POC Glucose 173 H 04/02/17 08:50: Troponin I 0.66 H* 04/02/17 08:50: Blood Type O POSITIVE, Antibody Screen NEGATIVE, Crossmatch See Detail 04/02/17 11:14: POC Glucose 166 H Current Medications Acetaminophen (Tylenol) 650 mg PO Q6H PRN PRN PRN Reason: Mild Pain (1-3)/Temp > 100.7 F Last Admin: 04/02/17 05:50 Dose: 650 mg Albuterol Sulfate (Ventolin Aerosols) 2.5 mg INHALATION Q2H PRN PRN PRN Reason: SHORTNESS OF BREATH Albuterol/Ipratropium (Duoneb) 3 ml INHALATION Q4HWA.RT ABDIAS Last Admin: 04/02/17 10:35 Dose: 3 ml Allopurinol (Zyloprim) 300 mg PO DAILY ABDIAS Last Admin: 04/02/17 09:59 Dose: 300 mg Aspirin (Aspirin, Baby) 81 mg PO DAILY@0800 [facility] Last Admin: 04/02/17 10:01 Dose: 81 mg Atorvastatin Calcium (Lipitor) 40 mg PO QHS [facility] Last Admin: 04/01/17 22:11 Dose: 40 mg Bisacodyl (Dulcolax) 5 mg PO DAILY PRN PRN PRN Reason: Constipation Clopidogrel Bisulfate (Plavix) 75 mg PO DAILY [facility] Last Admin: 04/02/17 10:02 Dose: 75 mg Clotrimazole (Mycelex) 10 mg MUCOUS MEM 5X/DAY [facility] Last Admin: 04/02/17 10:00 Dose: 10 mg Dextrose (D50w Syringe) 0 gm IV X1 PRN; Protocol PRN Reason: Hypoglycemia Diltiazem HCl (Cardizem Cd) 180 mg PO DAILY [facility] Last Admin: 04/02/17 10:00 Dose: 180 mg Duloxetine HCl (Cymbalta) 60 mg PO QHS [facility] Last Admin: 04/01/17 22:11 Dose: 60 mg Ergocalciferol (Vitamin D) 50,000 unit PO Q7D [facility] Last Admin: 04/02/17 10:00 Dose: 50,000 unit Ferrous Sulfate (Ferrous Sulfate) 325 mg PO BIDCM [facility] Last Admin: 04/02/17 09:59 Dose: 325 mg Furosemide (Lasix) 40 mg PO DAILY [facility] Last Admin: 04/02/17 10:01 Dose: 40 mg Glucagon () 1 mg IM .X1 PRN PRN Reason: Hypoglycemia Meropenem 1 gm/ Sodium (Chloride) 120 mls @ 33 mls/hr IV Q8 [facility] Last Admin: 04/02/17 05:00 Dose: 33 mls/hr Insulin Aspart (Novolog Flexpen (Bkc)) 0 units SC TIDAC ABDIAS PRN Reason: Protocol Last Admin: 04/02/17 11:26 Dose: 1 unit Lisinopril (Zestril) 40 mg PO DAILY [facility] Last Admin: 04/02/17 06:58 Dose: Not Given Magnesium Hydroxide (Milk Of Magnesia) 30 ml PO DAILY PRN PRN Reason: Constipation Multivitamins (Multivitamin) 1 tablet PO DAILY@0800 [facility] Last Admin: 04/02/17 09:59 Dose: 1 tablet Nitroglycerin (Nitrostat) 0.4 mg SUBLINGUAL Q5M PRN PRN Reason: Chest Pain Nutritional Formula (Lactose Free) (Glucerna Shake) 120 ml PO 4X/DAY [facility] Last Admin: 04/02/17 10:01 Dose: Not Given Ondansetron HCl (Zofran) 4 mg IV Q8H PRN PRN PRN Reason: NAUSEA Ondansetron HCl (Zofran) 8 mg PO Q8H PRN PRN PRN Reason: NAUSEA Oseltamivir Phosphate (Tamiflu) 75 mg PO BID [facility] Stop: 04/07/17 10:01 Last Admin: 04/02/17 10:00 Dose: 75 mg Oxycodone HCl (Oxyir) 5 - 10 mg PO Q4H PRN PRN PRN Reason: MOD-SEVERE PAIN (4-10/10) Paroxetine HCl (Paxil) 30 mg PO DAILY [facility] Last Admin: 04/02/17 10:00 Dose: 30 mg Senna/Docusate Sodium (Senokot-S, Margarita-Colace) 2 tablet PO BID [facility] Last Admin: 04/02/17 10:06 Dose: Not Given Sodium Chloride () 5 - 30 ml IV UD PRN PRN Reason: SALINE FLUSH Tramadol HCl (Ultram (G)) 50 mg PO Q6H PRN PRN PRN Reason: PAIN Assessment/Plan Active and Suspected Problems Neutropenic fever (Acute) Sepsis (Acute) 1. Sepsis; he is receiving IV fluids, will continue Meropenem and Tamiflu 2. Severe pancytopenia induced by chemotherapy. oncologist input noted. Patient will receive blood transfusion, will monitor CBC closely 3. Febrile neutropenia; continue treatment Tamiflu for influenza A infection the patient is covered with broad-spectrum antibacterials. 4. Troponin elevation; this most likely represents type II NSTEMI; echocardiogram showed normal ejection fraction and right ventricular dilatation. 5. Right ventricular dilatation CT angiogram of the chest was obtained stat and did not reveal any evidence of pulmonary embolism 6. Acute leukemia/MDS ; currently receives chemotherapy. 7. Hypotension; we will hold off on Lasix and other hypotensive agents, patient would be given saline bolus. 9. Anemia; he received a units of packed RBCs, will transfuse a second unit tomorrow. 10. DVT prophylaxis with SCDs . Code Visit Inpatient E&M: 88531 [facility] Hosp L3
--- NOTE | 2017-04-02 13:20 | CT_ITS ---
STUDY: CTA CHEST REASON FOR EXAM: Male, 71 years old. Hypoxia. RADIATION DOSAGE (If Supplied By Facility): CTDIvol = ( 20.04 ) mGy, DLP = ( 729.80 ) mGycm TECHNIQUE: The examination was performed with the intravenous administration of 100mL ml of Isovue 370 contrast material. Post-processing of the angiographic images was performed, with multiplanar reformation and 3D reconstruction. Individualized dose optimization techniques were used for this CT. COMPARISON: None. FINDINGS: This study is limited by patient motion. There are no central or segmental pulmonary emboli. The subsegmental branches are not adequately evaluated. There is no evidence of thoracic aortic aneurysm or dissection. The patient is status post sternotomy and coronary artery bypass graft. The heart is normal in size. There is no pericardial effusion. There is mediastinal lymphadenopathy with the largest node measuring 2 cm in the subcarinal region. There are no pulmonary infiltrates or pleural effusions. Evaluation for pulmonary nodules is limited by patient motion, but no pulmonary nodules are identified. There is no pneumothorax. Images through the upper abdomen demonstrate no significant abnormality. There are no destructive osseous lesions. CT/CTA Chest W/WO Contrast IMPRESSION: Study limited by patient motion. No central or segmental pulmonary embolus. Mediastinal lymphadenopathy. Clear lungs. Electronically Signed: Jonel Pope, at 15:11 EST Tel , Service support ,
[2017-04-02] MEDS: Glucerna Shake 120 ML LIQUID PO ×2 (13:38→21:41)
[2017-04-02] MEDS: 0.9% NaCl Peripheral Flush Adult/Peds IV (14:36)
--- NOTE | 2017-04-02 15:00 | CASEMGMT ---
RN CM assessment complete. See attached link for complete assessment. Dispo Plan: Home Transition Plan/Care Coordination: Patient is independent and lives with spouse. Patient denies home-going needs at this time. RN CM will continue to follow patient's hospital course and provide CM interventions as needed.
[2017-04-02] MEDS: 0.9% Normal Saline 1,000 ML 999 ML IV (15:11)
--- NOTE | 2017-04-02 15:42 | NURSING ---
DR IBARRA IN ROOM, PATIENT WOULD LIKE TO BE A FULL CODE.
[2017-04-02 16:46] LABS: Bedside Glucose 137 mg/dL (70-110)
[2017-04-02] MEDS: DULoxetine Hcl 60 MG Capsule PO (21:28)
[2017-04-02] MEDS: Atorvastatin Calcium 40 MG Tablet PO (21:29)
[2017-04-02 21:44] LABS: Hematocrit 21.2 % (40-54); Hemoglobin 7.2 g/dl (13.0-16.5)
[2017-04-02 21:46] LABS: Bedside Glucose 127 mg/dL (70-110)
[2017-04-02 22:06] LABS: Lactic Acid 1.5 mmol/L (0.4-2.0)
[2017-04-02 22:10] LABS: BNP,B-Type NATRIURETIC PEPTIDE 456.2 pg/mL (0-100)
--- NOTE | 2017-04-02 22:30 | RAD_ITS ---
STUDY: X-RAY CHEST REASON FOR EXAM: Male, 71 years old. Shortness of breath TECHNIQUE: A single frontal view of the chest was obtained. COMPARISON: Chest CT from the same day FINDINGS: The lungs are underaerated. There are no focal airspace opacities. There is no demonstrated pleural abnormality. There is mild enlargement of the cardiac silhouette. Sternotomy wires are present. The mediastinum and hilar regions are unremarkable. The central vessels are indistinct. Normal visualized aortic arch and descending thoracic aorta. There are diffuse degenerative changes of the visualized thoracic spine. 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 There is no demonstrated abnormality of the visualized upper abdomen. RAD/Chest 1 View (Portable) IMPRESSION: There is mild enlargement of the cardiac silhouette with vascular congestion. No obvious effusion. Electronically Signed: Cassie Tierney MD at 23:38 EST Tel Direct: [phone], Service support ,
[2017-04-03] VITALS (39 sets, daily range): BP systolic 76–115; BP diastolic 36–95; PULSE 85–101; RESP 16–36; TEMP 36.6–37.6; O2SAT 92–99
[2017-04-03] MEDS: Acetaminophen 325 MG Tablet 650 MG PO ×2 (04:25→17:32)
[2017-04-03] MEDS: 0.9% NaCl Peripheral Flush Adult/Peds IV ×4 (05:31→21:07)
[2017-04-03] MEDS: Clotrimazole 10 MG Troche MUCOUS MEM ×5 (05:31→21:07)
[2017-04-03] MEDS: Ipratropium/Albuterol Sulfate 3 ML AMPUL.NEB INHALATION ×5 (06:44→19:41)
[2017-04-03 06:56] LABS: Absolute Neutrophil Count 0.6 X10^3/uL (2.0-7.7); Eosinophil# 0.01 X10^3/uL; Eosinophils% 0.8 % (0-5); Hematocrit 22.2 % (40-54); Hemoglobin 7.6 g/dl (13.0-16.5); Lymphocyte % 24.6 % (19-41); Mean Corp Hgb Conc 34.2 g/gl (32-36); Mean Corpuscular Hgb 34.9 pg (27.0-32.0); Mean Corpuscular Volume 101.8 fL (80-94); Mean Platelet Vol. 9.1 fl (6.2-12.0); Monocyte# 0.31 X10^3/uL; Monocyte% 25.4 % (0-10); Neutrophil # 0.59 X10^3/uL (2.7-7.7); Neutrophil % 48.4 % (47-70); Platelet Count 104 K/mm3 (150-450); RBC Distribution Width CV 23.1 % (11.6-14.6); RBC Distribution Width SD 81.2 fl (35.1-43.9); Red Blood Count 2.18 M/mm3 (4.6-6.2)
[2017-04-03 06:56] LABS: Bedside Glucose 147 mg/dL (70-110)
[2017-04-03 07:02] LABS: Differential Indicated SCAN CRITERIA MET; POSITIVE COUNT YES; POSITIVE DIFFERENTIAL YES; POSITIVE MORPHOLOGY YES; White Blood Count 1.2 K/mm3 (4.4-11.0)
[2017-04-03 07:26] LABS: Differential Comment SCANNED
[2017-04-03 07:27] LABS: Anisocytosis 2+
--- NOTE | 2017-04-03 08:16 | PN.CARD_ITS ---
Subjectve: Patient was seen and evaluated and appears to be stable doing well from the cardiovascular standpoint Objective: Vital Signs Temp Pulse Resp BP Pulse Ox 98.4 F 86 19 H 104/50 L 94 04/03/17 07:00 04/03/17 07:00 04/03/17 07:00 04/03/17 07:00 04/03/17 07:00 Oxygen Flow Rate 2 Oxygen Delivery Method Nasal Cannula Weight: 250 lb 0.067 oz Body Mass Index (BMI) 38.0 Intake and Output for Last 24 Hours 04/01/17 04/02/17 04/03/17 23:59 23:59 23:59 Intake Total 240 / 240 2910 / 2910 625 / 625 Output Total 200 / 200 800 / 800 100 / 100 Balance 40 / 40 2110 / 2110 525 / 525 General: Awake, Alert, Oriented x 3 HEENT: PERRL, EOMI, Sclera Non Icteric Neck: Supple, Good ROM, No Lymph Node Enlargement Lungs: Clear to auscultation Cardiovascular: Regular Rhythm, Normal S1, Normal S2, No Murmurs, No Rubs, No Gallops Vascular: No Carotid Bruits, Normal Femoral Pulses, Normal Radial Pulses, Normal Dorsalis Pedal Pulse, Normal Posterior Tibial Pulses Abdomen: Bowel Sounds Present, Soft, Non Tender, No HSM, No Organomegaly Extremities: No Cyanosis, No Clubbing, No edema Neurological: No Focal Motor or Sensory Deficit 04/02/17 08:50: Troponin I 0.66 H* 04/02/17 21:34: Hgb 7.2 L, Hct 21.2 L 04/02/17 21:34: Lactic Acid 1.5 04/02/17 21:34: B-Natriuretic Peptide 456.2 H 04/03/17 06:15: WBC 1.2 L*, RBC 2.18 L, Hgb 7.6 L, Hct 22.2 L, MCV 101.8 H, MCH 34.9 H, MCHC 34.2, RDW 23.1 H, RDW Differential 81.2 H, Plt Count 104 L, MPV 9.1 , Immature Gran % (Auto) 0.800, Neut % (Auto) 48.4, Lymph % (Auto) 24.6, [place] % (Auto) 25.4 H, Eos % (Auto) 0.8, Baso % (Auto) 0.0, Absolute Neuts (auto) 0.6 L , Total Counted Not Reportable Rhythm: EKG: ECHO: Stress Test: Cardiac Cath: PCI: CT Surgery: Holter monitor: EPS: PPM: CXR: Chest CT Scan: Assessment/Plan 1. Abnormal cardiac enzymes-NSTEMI The above is likely secondary to demand ischemia with fixed coronary artery disease. At this time the patient is asymptomatic and my recommendation would be to keep him on statin , control his heart rate. Echocardiogram demonstrated preserved ejection fraction but with a dilated right ventricle. This was evaluated with a CT scan and there is no evidence of pulmonary embolism. 2. 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 He is on Cardizem and we may want to optimize the above. 3. Valvular heart disease with aortic stenosis. Does have evidence of aortic stenosis. Appears to be moderate on the basis of the echocardiogram. No changes or further recommendations will be made at this time. Thank you for allowing me to participate in his care.
--- NOTE | 2017-04-03 08:18 | PCM.PROGNOTE ---
Patient Problems: Active and Suspected Problems Neutropenic fever (Acute) Sepsis (Acute) Subjective: Still complain of shortness of breath and fatigue today. No clinical bleeding or chest pain. No nausea, or diarrhea, no stomatitis or rash. He had 2 units of blood transfusion yesterday. Started Tamiflu for influenza A. On broad-spectrum antibiotics, blood and urine culture pending. Possible NSTMI with moderate aortic stenosis and CHF. - Physical Exam General: Alert, Oriented x3, Cooperative HEENT: Atraumatic, - - Hemorrhage on the right sclera Oral: Moist Mucosa, No Gingival or Mucosal Lesions/ Ulcerations Neck: Supple Lungs: No rhonchi, No wheeze, Rales - Basilar rales Cardiovascular: Regular rate, Regular Rhythm, Normal S1, Normal S2, Murmur - Aortic stenosis murmur Abdomen: Bowel Sounds Present, Soft, Non Tender, Non-Distended, No Hepato-splenomegaly Extremities: No clubbing, No cyanosis, No edema Skin: No rashes Musculoskeletal: No Muscle Wasting Lymphatic: No Cervical, Supraclavicular, or Inguinal Adenopathy Neurological: Neuro grossly intact Psych/Mental Status: Normal Affect Vital Signs Temp Pulse Resp BP Pulse Ox 98.4 F 86 19 H 104/50 L 94 04/03/17 07:00 04/03/17 07:00 04/03/17 07:00 04/03/17 07:00 04/03/17 07:00 Oxygen Flow Rate 2 Oxygen Delivery Method Nasal Cannula Weight: 250 lb 0.067 oz Body Mass Index (BMI) 38.0 Intake and Output for Last 24 Hours 04/01/17 04/02/17 04/03/17 23:59 23:59 23:59 Intake Total 240 / 240 2910 / 2910 625 / 625 Output Total 200 / 200 800 / 800 100 / 100 Balance 40 / 40 2110 / 2110 525 / 525 Laboratory Tests Past 24 Hrs 04/02/17 04/02/17 04/02/17 03:18 08:50 08:50 WBC RBC Hgb Hct MCV MCH MCHC RDW RDW Differential Plt Count MPV Immature Gran % (Auto) Neut % (Auto) Lymph % (Auto) [place] % (Auto) Eos % (Auto) Baso % (Auto) Absolute Neuts (auto) Absolute Lymphs (auto) Total Counted Differential Comment Diff Path Review Reviewed Anisocytosis Lactic Acid Troponin I 0.66 H* B-Natriuretic Peptide Blood Type O POSITIVE Antibody Screen NEGATIVE Crossmatch See Detail 04/02/17 04/02/17 04/02/17 21:34 21:34 21:34 WBC RBC Hgb 7.2 L Hct 21.2 L MCV MCH MCHC RDW RDW Differential Plt Count MPV Immature Gran % (Auto) Neut % (Auto) Lymph % (Auto) [place] % (Auto) Eos % (Auto) Baso % (Auto) Absolute Neuts (auto) Absolute Lymphs (auto) Total Counted Differential Comment Diff Path Review Anisocytosis Lactic Acid 1.5 Troponin I B-Natriuretic Peptide 456.2 H Blood Type Antibody Screen Crossmatch 04/03/17 06:15 WBC 1.2 L* RBC 2.18 L Hgb 7.6 L Hct 22.2 L MCV 101.8 H MCH 34.9 H MCHC 34.2 RDW 23.1 H RDW Differential 81.2 H Plt Count 104 L MPV 9.1 Immature Gran % (Auto) 0.800 Neut % (Auto) 48.4 Lymph % (Auto) 24.6 [place] % (Auto) 25.4 H Eos % (Auto) 0.8 Baso % (Auto) 0.0 Absolute Neuts (auto) 0.6 L Absolute Lymphs (auto) 0.30 L Total Counted Not Reportable Differential Comment SCANNED Diff Path Review May foll Anisocytosis 2+ Lactic Acid Troponin I B-Natriuretic Peptide Blood Type Antibody Screen Crossmatch POC Glucose 04/03/17 04/02/17 04/02/17 06:52 21:35 16:29 POC Glucose 147 H 127 H 137 H 04/02/17 11:14 POC Glucose 166 H Assessment/Plan Active and Suspected Problems Neutropenic fever (Acute) Sepsis (Acute) 1) Neutropenic fever- possible secondary to influenza A. 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 4) acute leukemia/MDS- status post chemotherapy: Vidaza day 19 - complete blood counts should be recovering PLAN: - Monitor CBC & follow-up office visit next week or next cycle chemotherapy in 2 weeks - DVT prophylaxis/SCDs and stockings
[2017-04-03] MEDS: Clopidogrel Bisulfate 75 MG Tablet PO (10:09)
[2017-04-03] MEDS: Oseltamivir Phosphate 75 MG Capsule PO ×2 (10:09→21:07)
[2017-04-03] MEDS: Glucerna Shake 120 ML LIQUID PO (10:09)
[2017-04-03] MEDS: Ferrous Sulfate 325 MG Tablet PO ×2 (10:10→16:54)
[2017-04-03] MEDS: Aspirin 81 MG TAB.CHEW PO (10:10)
[2017-04-03] MEDS: Multivitamins,Therapeutic Tablet 1 TABLET PO (10:10)
[2017-04-03] MEDS: Allopurinol 300 MG Tablet PO (11:27)
[2017-04-03] MEDS: PARoxetine 10 MG Tablet 30 MG PO (11:27)
[2017-04-03] MEDS: Furosemide 20 MG/2 ML VIAL IV ×2 (11:33→21:07)
--- NOTE | 2017-04-03 11:39 | PCM.PN.HOSP ---
Patient Problems: Active and Suspected Problems Neutropenic fever (Acute) Sepsis (Acute) Subjective: CC: Acute influenza A infection This is a 71 year old male who was transferred from the [facility] to significant pancytopenic. 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 He tested positive for influenza A and has been started on Tamiflu. Anemic with hemoglobin around 7 and he is receiving RBCs. Today he is much improved, was chest congestion denies any chest pain fever or chills. Vitals/I&O's: Vital Signs Temp Pulse Resp BP Pulse Ox 99.1 F 88 28 H 86/50 L 99 04/03/17 11:00 04/03/17 11:00 04/03/17 11:00 04/03/17 11:00 04/03/17 11:00 Oxygen Flow Rate 1 Oxygen Delivery Method Nasal Cannula Weight: 113.4 kg Body Mass Index (BMI) 38.0 Intake and Output for Last 24 Hours 04/01/17 04/02/17 04/03/17 23:59 23:59 23:59 Intake Total 240 / 240 2910 / 2910 625 / 625 Output Total 200 / 200 800 / 800 100 / 100 Balance 40 / 40 2110 / 2110 525 / 525 Laboratory Results 04/02/17 03:18: Diff Path Review Reviewed 04/02/17 08:50: Blood Type O POSITIVE, Antibody Screen NEGATIVE, Crossmatch See Detail 04/02/17 08:50: Crossmatch See Detail 04/02/17 16:29: POC Glucose 137 H 04/02/17 21:34: Hgb 7.2 L, Hct 21.2 L 04/02/17 21:34: Lactic Acid 1.5 04/02/17 21:34: B-Natriuretic Peptide 456.2 H 04/02/17 21:35: POC Glucose 127 H 04/03/17 06:15: WBC 1.2 L*, RBC 2.18 L, Hgb 7.6 L, Hct 22.2 L, MCV 101.8 H, MCH 34.9 H, MCHC 34.2, RDW 23.1 H, RDW Differential 81.2 H, Plt Count 104 L, MPV 9.1, Immature Gran % (Auto) 0.800, Neut % (Auto) 48.4, Lymph % (Auto) 24.6, [place] % (Auto) 25.4 H, Eos % (Auto) 0.8, Baso % (Auto) 0.0, Absolute Neuts (auto) 0.6 L, Absolute Lymphs (auto) 0.30 L, Total Counted Not Reportable, Differential Comment SCANNED, Diff Path Review May foll, Anisocytosis 2+ 04/03/17 06:52: POC Glucose 147 H Current Medications Acetaminophen (Tylenol) 650 mg PO Q6H PRN PRN PRN Reason: Mild Pain (1-3)/Temp > 100.7 F Last Admin: 04/03/17 04:25 Dose: 650 mg Albuterol Sulfate (Ventolin Aerosols) 2.5 mg INHALATION Q2H PRN PRN PRN Reason: SHORTNESS OF BREATH Albuterol/Ipratropium (Duoneb) 3 ml INHALATION Q4HWA.RT [facility] Last Admin: 04/03/17 10:43 Dose: 3 ml Allopurinol (Zyloprim) 300 mg PO DAILY [facility] Last Admin: 04/03/17 11:27 Dose: 300 mg Aspirin (Aspirin, Baby) 81 mg PO DAILY@0800 [facility] Last Admin: 04/03/17 10:10 Dose: 81 mg Atorvastatin Calcium (Lipitor) 40 mg PO QHS [facility] Last Admin: 04/02/17 21:29 Dose: 40 mg Bisacodyl (Dulcolax) 5 mg PO DAILY PRN PRN PRN Reason: Constipation Clopidogrel Bisulfate (Plavix) 75 mg PO DAILY [facility] Last Admin: 04/03/17 10:09 Dose: 75 mg Clotrimazole (Mycelex) 10 mg MUCOUS MEM 5X/DAY [facility] Last Admin: 04/03/17 10:10 Dose: 10 mg Dextrose (D50w Syringe) 0 gm IV X1 PRN; Protocol PRN Reason: Hypoglycemia Duloxetine HCl (Cymbalta) 60 mg PO QHS [facility] Last Admin: 04/02/17 21:28 Dose: 60 mg Ergocalciferol (Vitamin D) 50,000 unit PO Q7D [facility] Last Admin: 04/02/17 10:00 Dose: 50,000 unit Ferrous Sulfate (Ferrous Sulfate) 325 mg PO BIDCM [facility] Last Admin: 04/03/17 10:10 Dose: 325 mg Glucagon () 1 mg IM .X1 PRN PRN Reason: Hypoglycemia Meropenem 1 gm/ Sodium (Chloride) 120 mls @ 33 mls/hr IV Q8 [facility] Last Admin: 04/03/17 05:31 Dose: 33 mls/hr Insulin Aspart (Novolog Flexpen (Bkc)) 0 units SC TIDAC ABDIAS PRN Reason: Protocol Last Admin: 04/03/17 11:29 Dose: Not Given Magnesium Hydroxide (Milk Of Magnesia) 30 ml PO DAILY PRN PRN Reason: Constipation Multivitamins (Multivitamin) 1 tablet PO DAILY@0800 [facility] Last Admin: 04/03/17 10:10 Dose: 1 tablet Nitroglycerin (Nitrostat) 0.4 mg SUBLINGUAL Q5M PRN PRN Reason: Chest Pain Nutritional Formula (Lactose Free) (Glucerna Shake) 120 ml PO 4X/DAY [facility] Last Admin: 04/03/17 10:09 Dose: 120 ml Ondansetron HCl (Zofran) 4 mg IV Q8H PRN PRN PRN Reason: NAUSEA Ondansetron HCl (Zofran) 8 mg PO Q8H PRN PRN PRN Reason: NAUSEA Oseltamivir Phosphate (Tamiflu) 75 mg PO BID [facility] Stop: 04/07/17 10:01 Last Admin: 04/03/17 10:09 Dose: 75 mg Oxycodone HCl (Oxyir) 5 - 10 mg PO Q4H PRN PRN PRN Reason: MOD-SEVERE PAIN (4-10/10) Paroxetine HCl (Paxil) 30 mg PO DAILY [facility] Last Admin: 04/03/17 11:27 Dose: 30 mg Senna/Docusate Sodium (Senokot-S, Margarita-Colace) 2 tablet PO BID [facility] Last Admin: 04/03/17 10:10 Dose: Not Given Sodium Chloride () 5 - 30 ml IV UD PRN PRN Reason: SALINE FLUSH Last Admin: 04/03/17 11:33 Dose: 10 ml Tramadol HCl (Ultram (G)) 50 mg PO Q6H PRN PRN PRN Reason: PAIN Assessment/Plan Active and Suspected Problems Neutropenic fever (Acute) Sepsis (Acute) 1. Sepsis; he appears to be much stable today. Will continue on antibiotics and Tamiflu. 2. Severe pancytopenia induced by chemotherapy. We will continue to monitor CBC, will transfuse packed RBCs , continue to monitor his neutrophil count and platelet level. 3. Febrile neutropenia; we will continue treatment Tamiflu for influenza A infection and broad broad-spectrum antibacterials. 4. Troponin elevation; this most likely represents type II NSTEMI; echocardiogram showed normal ejection fraction and right ventricular dilatation. Cardiology consulted and input noted. 5. Right ventricular dilatation; CTA chest did not reveal any evidence of pulmonary embolism 6. Acute leukemia/MDS ; currently receives chemotherapy. 7. Hypotension; improved, continue to hold off on his antihypertensive agents. 9. Anemia; he received a units of packed RBCs, will transfuse a second unit tomorrow. 10. CHF with preserved left ventricular function; his echocardiogram showed moderate aortic stenosis, would therefore use Lasix judiciously. 11. DVT prophylaxis with SCDs . Code Visit Inpatient E&M: 86907 Subs Hosp L2
--- NOTE | 2017-04-03 11:44 | PN_ITS ---
Patient Problems: Active and Suspected Problems Neutropenic fever (Acute) Sepsis (Acute) Subjective: CC: Acute influenza A infection This is a 71 year old male who was transferred from the [facility] [place] significant pancytopenic. 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 He tested positive for influenza A and has been started on Tamiflu. Anemic with hemoglobin around 7 and he is receiving RBCs. Today he is much improved, was chest congestion denies any chest pain fever or chills. Vitals/I&O's: Vital Signs Temp Pulse Resp BP Pulse Ox 99.1 F 88 28 H 86/50 L 99 04/03/17 11:00 04/03/17 11:00 04/03/17 11:00 04/03/17 11:00 04/03/17 11:00 Oxygen Flow Rate 1 Oxygen Delivery Method Nasal Cannula Weight: 113.4 kg Body Mass Index (BMI) 38.0 Intake and Output for Last 24 Hours 04/01/17 04/02/17 04/03/17 23:59 23:59 23:59 Intake Total 240 / 240 2910 / 2910 625 / 625 Output Total 200 / 200 800 / 800 100 / 100 Balance 40 / 40 2110 / 2110 525 / 525 Laboratory Results 04/02/17 03:18: Diff Path Review Reviewed 04/02/17 08:50: Blood Type O POSITIVE, Antibody Screen NEGATIVE, Crossmatch See Detail 04/02/17 08:50: Crossmatch See Detail 04/02/17 16:29: POC Glucose 137 H 04/02/17 21:34: Hgb 7.2 L, Hct 21.2 L 04/02/17 21:34: Lactic Acid 1.5 04/02/17 21:34: B-Natriuretic Peptide 456.2 H 04/02/17 21:35: POC Glucose 127 H 04/03/17 06:15: WBC 1.2 L*, RBC 2.18 L, Hgb 7.6 L, Hct 22.2 L, MCV 101.8 H, MCH 34.9 H, MCHC 34.2, RDW 23.1 H, RDW Differential 81.2 H, Plt Count 104 L, MPV 9.1 , Immature Gran % (Auto) 0.800, Neut % (Auto) 48.4, Lymph % (Auto) 24.6, [place] % (Auto) 25.4 H, Eos % (Auto) 0.8, Baso % (Auto) 0.0, Absolute Neuts (auto) 0.6 L , Absolute Lymphs (auto) 0.30 L, Total Counted Not Reportable, Differential Comment SCANNED, Diff Path Review May foll, Anisocytosis 2+ 04/03/17 06:52: POC Glucose 147 H Current Medications Acetaminophen (Tylenol) 650 mg PO Q6H PRN PRN PRN Reason: Mild Pain (1-3)/Temp > 100.7 F Last Admin: 04/03/17 04:25 Dose: 650 mg Albuterol Sulfate (Ventolin Aerosols) 2.5 mg INHALATION Q2H PRN PRN PRN Reason: SHORTNESS OF BREATH Albuterol/Ipratropium (Duoneb) 3 ml INHALATION Q4HWA.RT [facility] Last Admin: 04/03/17 10:43 Dose: 3 ml Allopurinol (Zyloprim) 300 mg PO DAILY [facility] Last Admin: 04/03/17 11:27 Dose: 300 mg Aspirin (Aspirin, Baby) 81 mg PO DAILY@0800 [facility] Last Admin: 04/03/17 10:10 Dose: 81 mg Atorvastatin Calcium (Lipitor) 40 mg PO QHS [facility] Last Admin: 04/02/17 21:29 Dose: 40 mg Bisacodyl (Dulcolax) 5 mg PO DAILY PRN PRN PRN Reason: Constipation Clopidogrel Bisulfate (Plavix) 75 mg PO DAILY [facility] Last Admin: 04/03/17 10:09 Dose: 75 mg Clotrimazole (Mycelex) 10 mg MUCOUS MEM 5X/DAY [facility] Last Admin: 04/03/17 10:10 Dose: 10 mg Dextrose (D50w Syringe) 0 gm IV X1 PRN; Protocol PRN Reason: Hypoglycemia Duloxetine HCl (Cymbalta) 60 mg PO QHS [facility] Last Admin: 04/02/17 21:28 Dose: 60 mg Ergocalciferol (Vitamin D) 50,000 unit PO Q7D [facility] Last Admin: 04/02/17 10:00 Dose: 50,000 unit Ferrous Sulfate (Ferrous Sulfate) 325 mg PO BIDCM [facility] Last Admin: 04/03/17 10:10 Dose: 325 mg Glucagon () 1 mg IM .X1 PRN PRN Reason: Hypoglycemia Meropenem 1 gm/ Sodium (Chloride) 120 mls @ 33 mls/hr IV Q8 [facility] Last Admin: 04/03/17 05:31 Dose: 33 mls/hr Insulin Aspart (Novolog Flexpen (Bkc)) 0 units SC TIDAC ABDIAS PRN Reason: Protocol Last Admin: 04/03/17 11:29 Dose: Not Given Magnesium Hydroxide (Milk Of Magnesia) 30 ml PO DAILY PRN PRN Reason: Constipation Multivitamins (Multivitamin) 1 tablet PO DAILY@0800 [facility] Last Admin: 04/03/17 10:10 Dose: 1 tablet Nitroglycerin (Nitrostat) 0.4 mg SUBLINGUAL Q5M PRN PRN Reason: Chest Pain Nutritional Formula (Lactose Free) (Glucerna Shake) 120 ml PO 4X/DAY [facility] Last Admin: 04/03/17 10:09 Dose: 120 ml Ondansetron HCl (Zofran) 4 mg IV Q8H PRN PRN PRN Reason: NAUSEA Ondansetron HCl (Zofran) 8 mg PO Q8H PRN PRN PRN Reason: NAUSEA Oseltamivir Phosphate (Tamiflu) 75 mg PO BID [facility] Stop: 04/07/17 10:01 Last Admin: 04/03/17 10:09 Dose: 75 mg Oxycodone HCl (Oxyir) 5 - 10 mg PO Q4H PRN PRN PRN Reason: MOD-SEVERE PAIN (4-10/10) Paroxetine HCl (Paxil) 30 mg PO DAILY [facility] Last Admin: 04/03/17 11:27 Dose: 30 mg Senna/Docusate Sodium (Senokot-S, Margarita-Colace) 2 tablet PO BID [facility] Last Admin: 04/03/17 10:10 Dose: Not Given Sodium Chloride () 5 - 30 ml IV UD PRN PRN Reason: SALINE FLUSH Last Admin: 04/03/17 11:33 Dose: 10 ml Tramadol HCl (Ultram (G)) 50 mg PO Q6H PRN PRN PRN Reason: PAIN Assessment/Plan Active and Suspected Problems Neutropenic fever (Acute) Sepsis (Acute) 1. Sepsis; he appears to be much stable today. Will continue on antibiotics and Tamiflu. 2. Severe pancytopenia induced by chemotherapy. We will continue to monitor CBC , will transfuse packed RBCs , continue to monitor his neutrophil count and platelet level. 3. Febrile neutropenia; we will continue treatment Tamiflu for influenza A infection and broad broad-spectrum antibacterials. 4. Troponin elevation; this most likely represents type II NSTEMI; echocardiogram showed normal ejection fraction and right ventricular dilatation. Cardiology consulted and input noted. 5. Right ventricular dilatation; CTA chest did not reveal any evidence of pulmonary embolism 6. Acute leukemia/MDS ; currently receives chemotherapy. 7. Hypotension; improved, continue to hold off on his antihypertensive agents. 9. Anemia; he received a units of packed RBCs, will transfuse a second unit tomorrow. 10. CHF with preserved left ventricular function; his echocardiogram showed moderate aortic stenosis, would therefore use Lasix judiciously. 11. DVT prophylaxis with SCDs . Code Visit Inpatient E&M: 12443 Subs Hosp L2
[2017-04-03 12:06] LABS: Bedside Glucose 151 mg/dL (70-110)
[2017-04-03 12:21] LABS: Pathologist Review Reviewed
[2017-04-03 16:55] LABS: Bedside Glucose 124 mg/dL (70-110)
[2017-04-03] MEDS: Senna/Docusate Sodium 1 Tablet 2 TABLET PO (21:07)
[2017-04-03] MEDS: Atorvastatin Calcium 40 MG Tablet PO (21:07)
[2017-04-03] MEDS: DULoxetine Hcl 60 MG Capsule PO (21:07)
[2017-04-03 21:56] LABS: Bedside Glucose 161 mg/dL (70-110)
[2017-04-04] VITALS (31 sets, daily range): BP systolic 93–137; BP diastolic 54–72; PULSE 81–115; RESP 17–29; TEMP 36.4–37.9; O2SAT 91–97
[2017-04-04] MEDS: Clotrimazole 10 MG Troche MUCOUS MEM ×5 (05:10→21:00)
[2017-04-04 06:41] LABS: Bedside Glucose 146 mg/dL (70-110)
[2017-04-04] MEDS: Ipratropium/Albuterol Sulfate 3 ML AMPUL.NEB INHALATION ×4 (07:27→19:39)
[2017-04-04] MEDS: Acetaminophen 325 MG Tablet 650 MG PO (07:38)
[2017-04-04] MEDS: Multivitamins,Therapeutic Tablet 1 TABLET PO (07:47)
[2017-04-04] MEDS: Aspirin 81 MG TAB.CHEW PO (07:47)
[2017-04-04] MEDS: Ferrous Sulfate 325 MG Tablet PO ×2 (07:47→16:46)
[2017-04-04] MEDS: Oseltamivir Phosphate 75 MG Capsule PO ×2 (09:21→20:59)
[2017-04-04] MEDS: Allopurinol 300 MG Tablet PO (09:21)
[2017-04-04] MEDS: Clopidogrel Bisulfate 75 MG Tablet PO (09:21)
[2017-04-04] MEDS: PARoxetine 10 MG Tablet 30 MG PO (09:22)
[2017-04-04] MEDS: Senna/Docusate Sodium 1 Tablet 2 TABLET PO ×2 (09:22→20:59)
[2017-04-04 10:30] LABS: Absolute Lymphocyte Count 0.41 X10^3/ul (0.83-4.51); Absolute Neutrophil Count 0.5 X10^3/uL (2.0-7.7); Basophil# 0.01 X10^3/uL; Basophil% 0.8 % (0-1); Eosinophil# 0.01 X10^3/uL; Eosinophils% 0.8 % (0-5); Hematocrit 29.8 % (40-54); Hemoglobin 10.2 g/dl (13.0-16.5); Lymphocyte # 0.41 X10^3/ul (4.0); Lymphocyte % 31.3 % (19-41); Mean Corp Hgb Conc 34.2 g/gl (32-36); Mean Corpuscular Hgb 34.2 pg (27.0-32.0); Mean Platelet Vol. 8.9 fl (6.2-12.0); Monocyte# 0.36 X10^3/uL; Monocyte% 27.5 % (0-10); Neutrophil # 0.51 X10^3/uL (2.7-7.7); Neutrophil % 38.8 % (47-70); Platelet Count 114 K/mm3 (150-450); RBC Distribution Width CV 22.6 % (11.6-14.6); RBC Distribution Width SD 79.7 fl (35.1-43.9); Red Blood Count 2.98 M/mm3 (4.6-6.2)
[2017-04-04 10:31] LABS: Differential Indicated SCAN CRITERIA MET; POSITIVE COUNT YES; POSITIVE DIFFERENTIAL YES; POSITIVE MORPHOLOGY YES
[2017-04-04 10:32] LABS: White Blood Count 1.3 K/mm3 (4.4-11.0)
[2017-04-04 10:46] LABS: Anisocytosis 1+; Differential Comment SCAN; Hypochromasia 1+; Polychromasia 1+
[2017-04-04 10:47] LABS: Microcytosis 1+
--- NOTE | 2017-04-04 11:00 | PN.CARD_ITS ---
Subjectve: Patient was seen and evaluated and appears to be doing better this morning. He also confirms this. Objective: Vital Signs Temp Pulse Resp BP Pulse Ox 98.1 F 103 H 24 H 111/55 L 94 04/04/17 10:00 04/04/17 10:00 04/04/17 10:00 04/04/17 10:00 04/04/17 10:00 Oxygen Flow Rate 1 Oxygen Delivery Method Room Air Weight: 250 lb 0.067 oz Body Mass Index (BMI) 38.0 Intake and Output for Last 24 Hours 04/02/17 04/03/17 04/04/17 23:59 23:59 23:59 Intake Total 2910 / 2910 1903 / 1903 796.4 / 796.4 Output Total 800 / 800 500 / 500 2750 / 2750 Balance 2110 / 2110 1403 / 1403 -1953.6 / -1953.6 General: Awake, Alert, Oriented x 3, Ill Appearing HEENT: Atraumatic Neck: Supple Lungs: Clear to auscultation Cardiovascular: Regular Rhythm, Normal S1, Normal S2, No Murmurs, No Rubs, No Gallops Vascular: No Carotid Bruits, Normal Femoral Pulses, Normal Radial Pulses, Normal Dorsalis Pedal Pulse, Normal Posterior Tibial Pulses Abdomen: Bowel Sounds Present, Soft, Non Tender, No HSM, No Organomegaly Extremities: No Cyanosis, No Clubbing, No edema Neurological: No Focal Motor or Sensory Deficit 04/04/17 09:30: WBC 1.3 L*, RBC 2.98 L, Hgb 10.2 L, Hct 29.8 L, MCV 100.0 H, MCH 34.2 H, MCHC 34.2, RDW 22.6 H, RDW Differential 79.7 H, Plt Count 114 L, MPV 8.9, Immature Gran % (Auto) 0.800, Neut % (Auto) 38.8 L, Lymph % (Auto) 31.3 , [place] % (Auto) 27.5 H, Eos % (Auto) 0.8, Baso % (Auto) 0.8, Absolute Neuts ( auto) 0.5 L, Total Counted Not Reportable Rhythm: Sinus rhythm Assessment/Plan 1. Abnormal cardiac enzymes-NSTEMI The above is likely secondary to demand ischemia with fixed coronary artery disease. At this time the patient is asymptomatic and my recommendation would be to keep him on statin , control his heart rate. His blood transfusion has certainly helped. Echocardiogram demonstrated preserved ejection fraction but with a dilated right ventricle. This was evaluated with a CT scan and there is no evidence of pulmonary embolism. We will recommend starting low-dose beta-richard Due to his pancytopenia I will recommend stopping the clopidogrel and leaving him on baby aspirin only. 2. 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 3. Valvular heart disease with aortic stenosis. Does have evidence of aortic stenosis. Appears to be moderate on the basis of the echocardiogram. No changes or further recommendations will be made at this time. Due to his dilated right ventricle I would recommend starting him on low-dose Lasix 40 mg a day. Thank you for allowing me to participate in his care.
[2017-04-04] MEDS: Metoprolol Tartrate 25 MG Tablet 12.5 MG PO ×2 (11:52→21:03)
[2017-04-04] MEDS: Furosemide 40 MG Tablet PO (11:52)
[2017-04-04 11:55] LABS: Bedside Glucose 133 mg/dL (70-110)
--- NOTE | 2017-04-04 15:02 | PCM.PN.HOSP ---
Patient Problems: Active and Suspected Problems Neutropenic fever (Acute) Sepsis (Acute) Subjective: CC: Acute influenza A infection This is a 71 year old male who was transferred from the [facility] to significant pancytopenic. 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 He tested positive for influenza A and was started on Tamiflu. He is improving clinically, no acute events reported overnight. Objective: CC; Vitals/I&O's: Vital Signs Temp Pulse Resp BP Pulse Ox 98.5 F 92 25 H 117/65 97 04/04/17 14:00 04/04/17 14:00 04/04/17 14:00 04/04/17 14:00 04/04/17 14:00 Oxygen Flow Rate 1 Oxygen Delivery Method Room Air Weight: 113.4 kg Body Mass Index (BMI) 38.0 Intake and Output for Last 24 Hours 04/02/17 04/03/17 04/04/17 23:59 23:59 23:59 Intake Total 2910 / 2910 1903 / 1903 1292.4 / 1292.4 Output Total 800 / 800 500 / 500 3250 / 3250 Balance 2110 / 2110 1403 / 1403 -1957.6 / -1957.6 General: Alert, Oriented x3 Oral: Moist Mucosa Neck: Supple, No JVD Lungs: Clear to auscultation, No rales Cardiovascular: Normal S1 Abdomen: Bowel Sounds Present, Soft Extremities: No edema Neurological: Cranial nerves II-XII grossly intact, Neuro grossly intact, Motor Exam 5/5 strength throughout Microbiology Past 72 Hours 04/01/17 22:25 Urine, Clean Catch Urine Culture - Final Culture exhibits no growth. 04/01/17 20:17 Blood Culture (Wb) - Left Hand Blood Culture - Preliminary No growth in 48 hours. 04/02/17 10:08 Swab (Method) Nasal Screen MRSA/MSSA (RODNEY) - Final Laboratory Results 04/02/17 08:50: Crossmatch See Detail 04/03/17 16:48: POC Glucose 124 H 04/03/17 21:05: POC Glucose 161 H 04/04/17 06:37: POC Glucose 146 H 04/04/17 09:30: WBC 1.3 L*, RBC 2.98 L, Hgb 10.2 L, Hct 29.8 L, MCV 100.0 H, MCH 34.2 H, MCHC 34.2, RDW 22.6 H, RDW Differential 79.7 H, Plt Count 114 L, MPV 8.9, Immature Gran % (Auto) 0.800, Neut % (Auto) 38.8 L, Lymph % (Auto) 31.3, [place] % (Auto) 27.5 H, Eos % (Auto) 0.8, Baso % (Auto) 0.8, Absolute Neuts (auto) 0.5 L, Absolute Lymphs (auto) 0.41 L, Total Counted Not Reportable, Differential Comment SCAN, Diff Path Review May foll, Polychromasia 1+, Hypochromasia 1+, Anisocytosis 1+, Microcytosis 1+ 04/04/17 11:25: POC Glucose 133 H Current Medications Acetaminophen (Tylenol) 650 mg PO Q6H PRN PRN PRN Reason: Mild Pain (1-3)/Temp > 100.7 F Last Admin: 04/04/17 07:38 Dose: 650 mg Albuterol Sulfate (Ventolin Aerosols) 2.5 mg INHALATION Q2H PRN PRN PRN Reason: SHORTNESS OF BREATH Albuterol/Ipratropium (Duoneb) 3 ml INHALATION Q4HWA.RT [facility] Last Admin: 04/04/17 14:29 Dose: 3 ml Allopurinol (Zyloprim) 300 mg PO DAILY [facility] Last Admin: 04/04/17 09:21 Dose: 300 mg Aspirin (Aspirin, Baby) 81 mg PO DAILY@0800 [facility] Last Admin: 04/04/17 07:47 Dose: 81 mg Atorvastatin Calcium (Lipitor) 40 mg PO QHS [facility] Last Admin: 04/03/17 21:07 Dose: 40 mg Bisacodyl (Dulcolax) 5 mg PO DAILY PRN PRN PRN Reason: Constipation Clotrimazole (Mycelex) 10 mg MUCOUS MEM 5X/DAY [facility] Last Admin: 04/04/17 14:02 Dose: 10 mg Dextrose (D50w Syringe) 0 gm IV X1 PRN; Protocol PRN Reason: Hypoglycemia Duloxetine HCl (Cymbalta) 60 mg PO QHS [facility] Last Admin: 04/03/17 21:07 Dose: 60 mg Ergocalciferol (Vitamin D) 50,000 unit PO Q7D [facility] Last Admin: 04/02/17 10:00 Dose: 50,000 unit [facility]ous [facility] Last Admin: 04/04/17 07:47 Dose: 325 mg Furosemide (Lasix) 40 mg PO DAILY [facility] Glucagon () 1 mg IM .X1 PRN PRN Reason: Hypoglycemia Meropenem 1 gm/ Sodium (Chloride) 120 mls @ 33 mls/hr IV Q8 [facility] Last Admin: 04/04/17 14:02 Dose: 33 mls/hr Insulin Aspart (Novolog Flexpen (Bkc)) 0 units SC TIDAC ABDIAS PRN Reason: Protocol Last Admin: 04/04/17 11:26 Dose: Not Given Magnesium Hydroxide (Milk Of Magnesia) 30 ml PO DAILY PRN PRN Reason: Constipation Metoprolol Tartrate (Lopressor (Beta Liam)) 12.5 mg PO BID [facility] Last Admin: 04/04/17 11:52 Dose: 12.5 mg Multivitamins (Multivitamin) 1 tablet PO DAILY@0800 [facility] Last Admin: 04/04/17 07:47 Dose: 1 tablet Nitroglycerin (Nitrostat) 0.4 mg SUBLINGUAL Q5M PRN PRN Reason: Chest Pain Ondansetron HCl (Zofran) 4 mg IV Q8H PRN PRN PRN Reason: NAUSEA Ondansetron HCl (Zofran) 8 mg PO Q8H PRN PRN PRN Reason: NAUSEA Oseltamivir Phosphate (Tamiflu) 75 mg PO BID [facility] Stop: 04/07/17 10:01 Last Admin: 04/04/17 09:21 Dose: 75 mg Oxycodone HCl (Oxyir) 5 - 10 mg PO Q4H PRN PRN PRN Reason: MOD-SEVERE PAIN (4-10/10) Paroxetine HCl (Paxil) 30 mg PO DAILY [facility] Last Admin: 04/04/17 09:22 Dose: 30 mg Senna/Docusate Sodium (Senokot-S, Margarita-Colace) 2 tablet PO BID [facility] Last Admin: 04/04/17 09:22 Dose: 2 tablet Sodium Chloride () 5 - 30 ml IV UD PRN PRN Reason: SALINE FLUSH Last Admin: 04/03/17 21:07 Dose: 20 ml Tramadol HCl (Ultram (G)) 50 mg PO Q6H PRN PRN PRN Reason: PAIN Assessment/Plan Active and Suspected Problems Neutropenic fever (Acute) Sepsis (Acute) 1. Sepsis; he appears to be much stable today. Will continue on antibiotics and Tamiflu. 2. Severe pancytopenia induced by chemotherapy. We will continue to monitor CBC. 3. Febrile neutropenia; he is on Tamiflu for influenza A infection and broad broad-spectrum antibacterials. 4. Troponin elevation; this most likely represents type II NSTEMI; echocardiogram showed normal ejection fraction and right ventricular dilatation. Cardiology consulted and input noted. 5. Right ventricular dilatation; CTA chest did not reveal any evidence of pulmonary embolism. 6. Acute leukemia/MDS ; he should follow-up with his oncologist as an outpatient to continue his chemotherapy after his infection is adequately treated. 7. Hypotension; this has now resolved. 9. Anemia; he received a units of packed RBCs, will transfuse a second unit tomorrow. 10. CHF with preserved left ventricular function; he appears clinically compensated. 11. Moderate Aortic stenosis; he will follow-up with his systems analyst engineer and his primary care doctor as an outpatient. 12 DVT prophylaxis with SCDs .
--- NOTE | 2017-04-04 15:13 | PN_ITS ---
Patient Problems: Active and Suspected Problems Neutropenic fever (Acute) Sepsis (Acute) Subjective: CC: Acute influenza A infection This is a 71 year old male who was transferred from the [facility] to significant pancytopenic. 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 He tested positive for influenza A and was started on Tamiflu. He is improving clinically, no acute events reported overnight. Objective: CC; Vitals/I&O's: Vital Signs Temp Pulse Resp BP Pulse Ox 98.5 F 92 25 H 117/65 97 04/04/17 14:00 04/04/17 14:00 04/04/17 14:00 04/04/17 14:00 04/04/17 14:00 Oxygen Flow Rate 1 Oxygen Delivery Method Room Air Weight: 113.4 kg Body Mass Index (BMI) 38.0 Intake and Output for Last 24 Hours 04/02/17 04/03/17 04/04/17 23:59 23:59 23:59 Intake Total 2910 / 2910 1903 / 1903 1292.4 / 1292.4 Output Total 800 / 800 500 / 500 3250 / 3250 Balance 2110 / 2110 1403 / 1403 -1957.6 / -1957.6 General: Alert, Oriented x3 Oral: Moist Mucosa Neck: Supple, No JVD Lungs: Clear to auscultation, No rales Cardiovascular: Normal S1 Abdomen: Bowel Sounds Present, Soft Extremities: No edema Neurological: Cranial nerves II-XII grossly intact, Neuro grossly intact, Motor Exam 5/5 strength throughout Microbiology Past 72 Hours 04/01/17 22:25 Urine, Clean Catch Urine Culture - Final Culture exhibits no growth. 04/01/17 20:17 Blood Culture (Wb) - Left Hand Blood Culture - Preliminary No growth in 48 hours. 04/02/17 10:08 Swab (Method) Nasal Screen MRSA/MSSA (RODNEY) - Final Laboratory Results 04/02/17 08:50: Crossmatch See Detail 04/03/17 16:48: POC Glucose 124 H 04/03/17 21:05: POC Glucose 161 H 04/04/17 06:37: POC Glucose 146 H 04/04/17 09:30: WBC 1.3 L*, RBC 2.98 L, Hgb 10.2 L, Hct 29.8 L, MCV 100.0 H, MCH 34.2 H, MCHC 34.2, RDW 22.6 H, RDW Differential 79.7 H, Plt Count 114 L, MPV 8.9, Immature Gran % (Auto) 0.800, Neut % (Auto) 38.8 L, Lymph % (Auto) 31.3 , [place] % (Auto) 27.5 H, Eos % (Auto) 0.8, Baso % (Auto) 0.8, Absolute Neuts ( auto) 0.5 L, Absolute Lymphs (auto) 0.41 L, Total Counted Not Reportable, Differential Comment SCAN, Diff Path Review May foll, Polychromasia 1+, Hypochromasia 1+, Anisocytosis 1+, Microcytosis 1+ 04/04/17 11:25: POC Glucose 133 H Current Medications Acetaminophen (Tylenol) 650 mg PO Q6H PRN PRN PRN Reason: Mild Pain (1-3)/Temp > 100.7 F Last Admin: 04/04/17 07:38 Dose: 650 mg Albuterol Sulfate (Ventolin Aerosols) 2.5 mg INHALATION Q2H PRN PRN PRN Reason: SHORTNESS OF BREATH Albuterol/Ipratropium (Duoneb) 3 ml INHALATION Q4HWA.RT [facility] Last Admin: 04/04/17 14:29 Dose: 3 ml Allopurinol (Zyloprim) 300 mg PO DAILY [facility] Last Admin: 04/04/17 09:21 Dose: 300 mg Aspirin (Aspirin, Baby) 81 mg PO DAILY@0800 [facility] Last Admin: 04/04/17 07:47 Dose: 81 mg Atorvastatin Calcium (Lipitor) 40 mg PO QHS [facility] Last Admin: 04/03/17 21:07 Dose: 40 mg Bisacodyl (Dulcolax) 5 mg PO DAILY PRN PRN PRN Reason: Constipation Clotrimazole (Mycelex) 10 mg MUCOUS MEM 5X/DAY [facility] Last Admin: 04/04/17 14:02 Dose: 10 mg Dextrose (D50w Syringe) 0 gm IV X1 PRN; Protocol PRN Reason: Hypoglycemia Duloxetine HCl (Cymbalta) 60 mg PO QHS [facility] Last Admin: 04/03/17 21:07 Dose: 60 mg Ergocalciferol (Vitamin D) 50,000 unit PO Q7D [facility] Last Admin: 04/02/17 10:00 Dose: 50,000 unit Ferrous Sulfate ([facility]ate) [facility] Last Admin: 04/04/17 07:47 Dose: 325 mg Furosemide (Lasix) 40 mg PO DAILY [facility] Glucagon () 1 mg IM .X1 PRN PRN Reason: Hypoglycemia Meropenem 1 gm/ Sodium (Chloride) 120 mls @ 33 mls/hr IV Q8 [facility] Last Admin: 04/04/17 14:02 Dose: 33 mls/hr Insulin Aspart (Novolog Flexpen (Bkc)) 0 units SC TIDAC ABDIAS PRN Reason: Protocol Last Admin: 04/04/17 11:26 Dose: Not Given Magnesium Hydroxide (Milk Of Magnesia) 30 ml PO DAILY PRN PRN Reason: Constipation Metoprolol Tartrate (Lopressor (Beta Liam)) 12.5 mg PO BID [facility] Last Admin: 04/04/17 11:52 Dose: 12.5 mg Multivitamins (Multivitamin) 1 tablet PO DAILY@0800 [facility] Last Admin: 04/04/17 07:47 Dose: 1 tablet Nitroglycerin (Nitrostat) 0.4 mg SUBLINGUAL Q5M PRN PRN Reason: Chest Pain Ondansetron HCl (Zofran) 4 mg IV Q8H PRN PRN PRN Reason: NAUSEA Ondansetron HCl (Zofran) 8 mg PO Q8H PRN PRN PRN Reason: NAUSEA Oseltamivir Phosphate (Tamiflu) 75 mg PO BID [facility] Stop: 04/07/17 10:01 Last Admin: 04/04/17 09:21 Dose: 75 mg Oxycodone HCl (Oxyir) 5 - 10 mg PO Q4H PRN PRN PRN Reason: MOD-SEVERE PAIN (4-10/10) Paroxetine HCl (Paxil) 30 mg PO DAILY [facility] Last Admin: 04/04/17 09:22 Dose: 30 mg Senna/Docusate Sodium (Senokot-S, Margarita-Colace) 2 tablet PO BID [facility] Last Admin: 04/04/17 09:22 Dose: 2 tablet Sodium Chloride () 5 - 30 ml IV UD PRN PRN Reason: SALINE FLUSH Last Admin: 04/03/17 21:07 Dose: 20 ml Tramadol HCl (Ultram (G)) 50 mg PO Q6H PRN PRN PRN Reason: PAIN Assessment/Plan Active and Suspected Problems Neutropenic fever (Acute) Sepsis (Acute) 1. Sepsis; he appears to be much stable today. Will continue on antibiotics and Tamiflu. 2. Severe pancytopenia induced by chemotherapy. We will continue to monitor CBC. 3. Febrile neutropenia; he is on Tamiflu for influenza A infection and broad broad-spectrum antibacterials. 4. Troponin elevation; this most likely represents type II NSTEMI; echocardiogram showed normal ejection fraction and right ventricular dilatation. Cardiology consulted and input noted. 5. Right ventricular dilatation; CTA chest did not reveal any evidence of pulmonary embolism. 6. Acute leukemia/MDS ; he should follow-up with his oncologist as an outpatient to continue his chemotherapy after his infection is adequately treated. 7. Hypotension; this has now resolved. 9. Anemia; he received a units of packed RBCs, will transfuse a second unit tomorrow. 10. CHF with preserved left ventricular function; he appears clinically compensated. 11. Moderate Aortic stenosis; he will follow-up with his cook chill technician and his primary care doctor as an outpatient. 12 DVT prophylaxis with SCDs .
[2017-04-04 16:46] LABS: Bedside Glucose 149 mg/dL (70-110)
[2017-04-04] MEDS: DULoxetine Hcl 60 MG Capsule PO (20:59)
[2017-04-04] MEDS: Atorvastatin Calcium 40 MG Tablet PO (20:59)
[2017-04-04] MEDS: 0.9% NaCl Peripheral Flush Adult/Peds IV (21:07)
[2017-04-04 21:31] LABS: Bedside Glucose 151 mg/dL (70-110)
[2017-04-05] VITALS (9 sets, daily range): BP systolic 106–135; BP diastolic 50–63; PULSE 76–82; RESP 16–20; TEMP 36.9–37.1; O2SAT 94–96
[2017-04-05] MEDS: Clotrimazole 10 MG Troche MUCOUS MEM ×2 (06:13→09:10)
[2017-04-05 06:45] LABS: Hematocrit 29.9 % (40-54); Hemoglobin 10.1 g/dl (13.0-16.5); Mean Corp Hgb Conc 33.8 g/gl (32-36); Mean Corpuscular Hgb 34.5 pg (27.0-32.0); Mean Platelet Vol. 8.9 fl (6.2-12.0); Platelet Count 147 K/mm3 (150-450); RBC Distribution Width CV 21.8 % (11.6-14.6); RBC Distribution Width SD 76.6 fl (35.1-43.9); Red Blood Count 2.93 M/mm3 (4.6-6.2); White Blood Count 1.9 K/mm3 (4.4-11.0)
[2017-04-05 06:46] LABS: Bedside Glucose 130 mg/dL (70-110)
[2017-04-05 06:56] LABS: POSITIVE COUNT NO; POSITIVE DIFFERENTIAL YES; POSITIVE MORPHOLOGY YES
[2017-04-05 07:29] LABS: Blast 9 % (0-0); Eosinophil 1 % (0-5); Lymphocyte 51 % (19-41); Monocyte 4 % (0-10); Neutrophil-Band 1 % (0-5); Neutrophil-Segmented 33 % (47-70); Promyelocyte 1 (0-0); Total Cells Counted 100 (MANUAL DIFF)
[2017-04-05 07:31] LABS: Scan Smear per Review Criteria MANUAL DIFF
[2017-04-05 07:32] LABS: Differential Indicated MANUAL DIFF
[2017-04-05 07:33] LABS: Absolute Neutrophil Count 0.6 X10^3/uL (2.0-7.7)
[2017-04-05 07:34] LABS: Absolute Lymphocyte Count 0.96 X10^3/ul (0.83-4.51)
[2017-04-05] MEDS: Acetaminophen 325 MG Tablet 650 MG PO (09:08)
[2017-04-05] MEDS: Metoprolol Tartrate 25 MG Tablet 12.5 MG PO (09:09)
[2017-04-05] MEDS: Furosemide 40 MG Tablet PO (09:09)
[2017-04-05] MEDS: Ferrous Sulfate 325 MG Tablet PO (09:10)
[2017-04-05] MEDS: Allopurinol 300 MG Tablet PO (09:10)
[2017-04-05] MEDS: Senna/Docusate Sodium 1 Tablet 2 TABLET PO (09:10)
[2017-04-05] MEDS: Oseltamivir Phosphate 75 MG Capsule PO (09:10)
[2017-04-05] MEDS: PARoxetine 10 MG Tablet 30 MG PO (09:10)
[2017-04-05] MEDS: Multivitamins,Therapeutic Tablet 1 TABLET PO (09:10)
[2017-04-05] MEDS: Aspirin 81 MG TAB.CHEW PO (09:10)
--- NOTE | 2017-04-05 10:18 | PCM.PN.CARD ---
Subjectve: Patient seen and evaluated Objective: Vital Signs Temp Pulse Resp BP Pulse Ox 98.4 F 80 20 H 118/58 L 95 04/05/17 09:05 04/05/17 09:09 04/05/17 09:05 04/05/17 09:05 04/05/17 09:05 Oxygen Flow Rate 1 Oxygen Delivery Method Room Air Weight: 250 lb 0.067 oz Body Mass Index (BMI) 38.0 Intake and Output for Last 24 Hours 04/03/17 04/04/17 04/05/17 23:59 23:59 23:59 Intake Total 1903 / 1903 1797.4 / 1797.4 480 / 480 Output Total 500 / 500 4050 / 4050 1300 / 1300 Balance 1403 / 1403 -2252.6 / -2252.6 -820 / -820 General: Awake, Alert, Oriented x 3 HEENT: PERRL, EOMI, Sclera Non Icteric Neck: Supple, Good ROM, No Lymph Node Enlargement Lungs: Clear to auscultation Cardiovascular: Regular Rhythm, Normal S1, Normal S2, No Murmurs, No Rubs, No Gallops Vascular: No Carotid Bruits, Normal Femoral Pulses, Normal Radial Pulses, Normal Dorsalis Pedal Pulse, Normal Posterior Tibial Pulses Abdomen: Bowel Sounds Present, Soft, Non Tender, No HSM, No Organomegaly Extremities: No Cyanosis, No Clubbing, No edema Neurological: No Focal Motor or Sensory Deficit 04/04/17 09:30: WBC 1.3 L*, RBC 2.98 L, Hgb 10.2 L, Hct 29.8 L, MCV 100.0 H, MCH 34.2 H, MCHC 34.2, RDW 22.6 H, RDW Differential 79.7 H, Plt Count 114 L, MPV 8.9, Immature Gran % (Auto) 0.800, Neut % (Auto) 38.8 L, Lymph % (Auto) 31.3, [place] % (Auto) 27.5 H, Eos % (Auto) 0.8, Baso % (Auto) 0.8, Absolute Neuts (auto) 0.5 L, Total Counted Not Reportable 04/05/17 06:15: WBC 1.9 L, RBC 2.93 L, Hgb 10.1 L, Hct 29.9 L, MCV 102.0 H, MCH 34.5 H, MCHC 33.8, RDW 21.8 H, RDW Differential 76.6 H, Plt Count 147 L, MPV 8.9, Immature Gran % (Auto) WELDING MACHINE TENDER, Neut % (Auto) WELDING MACHINE TENDER, Lymph % (Auto) WELDING MACHINE TENDER, [place] % (Auto) WELDING MACHINE TENDER, Eos % (Auto) WELDING MACHINE TENDER, Baso % (Auto) WELDING MACHINE TENDER, Absolute Neuts (auto) 0.6 L, Total Counted 100, Neutrophils % (Manual) 33 L, Band Neutrophils % 1, Lymphocytes % (Manual) 51 H, Monocytes % (Manual) 4, Eosinophils % (Manual) 1, Promyelocytes % 1 H, Blast Cells % 9 H* Rhythm: EKG: ECHO: Stress Test: Cardiac Cath: PCI: CT Surgery: Holter monitor: EPS: PPM: CXR: Chest CT Scan: Assessment/Plan 1. Abnormal cardiac enzymes-NSTEMI The above is likely secondary to demand ischemia with fixed coronary artery disease. At this time the patient is asymptomatic and my recommendation would be to keep him on statin , control his heart rate. His blood transfusion has certainly helped. Echocardiogram demonstrated preserved ejection fraction but with a dilated right ventricle. This was evaluated with a CT scan and there is no evidence of pulmonary embolism. We will recommend starting low-dose beta-richard Due to his pancytopenia I will recommend stopping the clopidogrel and leaving him on baby aspirin only. 2. 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 3. Valvular heart disease with aortic stenosis. Does have evidence of aortic stenosis. Appears to be moderate on the basis of the echocardiogram. No changes or further recommendations will be made at this time. Due to his dilated right ventricle I would recommend starting him on low-dose Lasix 40 mg a day. Thank you for allowing me to participate in his care.
--- NOTE | 2017-04-05 10:21 | PN.CARD_ITS ---
Subjectve: Patient seen and evaluated Objective: Vital Signs Temp Pulse Resp BP Pulse Ox 98.4 F 80 20 H 118/58 L 95 04/05/17 09:05 04/05/17 09:09 04/05/17 09:05 04/05/17 09:05 04/05/17 09:05 Oxygen Flow Rate 1 Oxygen Delivery Method Room Air Weight: 250 lb 0.067 oz Body Mass Index (BMI) 38.0 Intake and Output for Last 24 Hours 04/03/17 04/04/17 04/05/17 23:59 23:59 23:59 Intake Total 1903 / 1903 1797.4 / 1797.4 480 / 480 Output Total 500 / 500 4050 / 4050 1300 / 1300 Balance 1403 / 1403 -2252.6 / -2252.6 -820 / -820 General: Awake, Alert, Oriented x 3 HEENT: PERRL, EOMI, Sclera Non Icteric Neck: Supple, Good ROM, No Lymph Node Enlargement Lungs: Clear to auscultation Cardiovascular: Regular Rhythm, Normal S1, Normal S2, No Murmurs, No Rubs, No Gallops Vascular: No Carotid Bruits, Normal Femoral Pulses, Normal Radial Pulses, Normal Dorsalis Pedal Pulse, Normal Posterior Tibial Pulses Abdomen: Bowel Sounds Present, Soft, Non Tender, No HSM, No Organomegaly Extremities: No Cyanosis, No Clubbing, No edema Neurological: No Focal Motor or Sensory Deficit 04/04/17 09:30: WBC 1.3 L*, RBC 2.98 L, Hgb 10.2 L, Hct 29.8 L, MCV 100.0 H, MCH 34.2 H, MCHC 34.2, RDW 22.6 H, RDW Differential 79.7 H, Plt Count 114 L, MPV 8.9, Immature Gran % (Auto) 0.800, Neut % (Auto) 38.8 L, Lymph % (Auto) 31.3 , [place] % (Auto) 27.5 H, Eos % (Auto) 0.8, Baso % (Auto) 0.8, Absolute Neuts ( auto) 0.5 L, Total Counted Not Reportable 04/05/17 06:15: WBC 1.9 L, RBC 2.93 L, Hgb 10.1 L, Hct 29.9 L, MCV 102.0 H, MCH 34.5 H, MCHC 33.8, RDW 21.8 H, RDW Differential 76.6 H, Plt Count 147 L, MPV 8.9 , Immature Gran % (Auto) SEARCH ENGINE OPTIMIZER, Neut % (Auto) SEARCH ENGINE OPTIMIZER, Lymph % (Auto) SEARCH ENGINE OPTIMIZER, [place] % (Auto) SEARCH ENGINE OPTIMIZER, Eos % (Auto) SEARCH ENGINE OPTIMIZER, Baso % (Auto) SEARCH ENGINE OPTIMIZER, Absolute Neuts (auto) 0.6 L, Total Counted 100, Neutrophils % (Manual) 33 L, Band Neutrophils % 1, Lymphocytes % ( Manual) 51 H, Monocytes % (Manual) 4, Eosinophils % (Manual) 1, Promyelocytes % 1 H, Blast Cells % 9 H* Rhythm: EKG: ECHO: Stress Test: Cardiac Cath: PCI: CT Surgery: Holter monitor: EPS: PPM: CXR: Chest CT Scan: Assessment/Plan 1. Abnormal cardiac enzymes-NSTEMI The above is likely secondary to demand ischemia with fixed coronary artery disease. At this time the patient is asymptomatic and my recommendation would be to keep him on statin , control his heart rate. His blood transfusion has certainly helped. Echocardiogram demonstrated preserved ejection fraction but with a dilated right ventricle. This was evaluated with a CT scan and there is no evidence of pulmonary embolism. We will recommend starting low-dose beta-richard Due to his pancytopenia I will recommend stopping the clopidogrel and leaving him on baby aspirin only. 2. 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 3. Valvular heart disease with aortic stenosis. Does have evidence of aortic stenosis. Appears to be moderate on the basis of the echocardiogram. No changes or further recommendations will be made at this time. Due to his dilated right ventricle I would recommend starting him on low-dose Lasix 40 mg a day. Thank you for allowing me to participate in his care.
[2017-04-05] MEDS: Ipratropium/Albuterol Sulfate 3 ML AMPUL.NEB INHALATION (10:58)
--- NOTE | 2017-04-05 11:14 | PCM.DC ---
- Discharge Diagnoses Current Active Problems: Current Active and Chronic Problems Neutropenic fever (Acute) Sepsis (Acute) Leukemia (Chronic) Aortic stenosis (Chronic) HTN (hypertension) (Chronic) Hyperlipidemia (Chronic) DM2 (diabetes mellitus, type 2) (Chronic) You will use the following diet at home:: Regular Discharge Activity: Return to Normal Activity Allergies/Adverse Reactions: Allergies Penicillins [PCN] Allergy (Verified 03/20/17 08:37) Other Sulfa (Sulfonamide Antibiotics) Allergy (Verified 03/20/17 08:37) Rash gabapentin Adverse Reaction (Verified 03/20/17 08:37) Other Medications to take at Discharge Allopurinol [Zyloprim] 300 mg PO DAILY 07/24/14 Diltiazem HCl [Diltiazem 24Hr ER] 1 tablet PO DAILY 07/24/14 Metformin(XR) [Glucophage Xr] 500 mg PO BID 07/24/14 Rosuvastatin Calcium [Crestor] 20 mg PO QHS 07/24/14 Duloxetine Hcl [Cymbalta] 60 mg PO QHS 03/15/17 Ergocalciferol [Vitamin D] 50,000 unit PO Q7D 03/15/17 Ferrous Sulfate [Iron] 325 mg PO BID 03/15/17 Furosemide [Lasix] 40 mg PO DAILY 03/15/17 Multivitamin [Multiple Vitamins] 1 each PO DAILY 03/15/17 Nitroglycerin [Nitrostat] 0.4 mg SUBLINGUAL Q5M PRN 03/15/17 Ondansetron [Zofran] 8 mg PO Q8H PRN PRN 03/15/17 Paroxetine HCl [Paxil] 30 mg PO DAILY 03/15/17 TraMADol [Ultram] 50 mg PO Q6H PRN PRN 03/15/17 Aspirin [Aspirin, Baby] 81 mg PO DAILY@0800 #30 tab.chew 04/05/17 Metoprolol Tartrate [Lopressor (beta richard)] 12.5 mg PO BID 30 Days #30 tab 04/05/17 Oseltamivir Phosphate [Tamiflu] 75 mg PO BID #6 cap 04/05/17 The following prescriptions were given: Metoprolol Tartrate [Lopressor (beta richard)] 12.5 mg PO BID 30 Days #30 tab Oseltamivir Phosphate [Tamiflu] 75 mg PO BID #6 cap Primary Care Physician: Denae Goldstein MATH AND PHYSICS INSTRUCTOR-C [Primary Care Provider] - Within 2 Weeks Proposed Discharge Date: 04/05/17
--- NOTE | 2017-04-05 11:15 | PCM.DC.SUM ---
Discharge Date and Diagnosis Date of Admission: 04/01/17 Date of Discharge: 04/05/17 - Primary Discharge Diagnosis Active and Suspected Problems Neutropenic fever (Acute) Sepsis (Acute) - Secondary Discharge Diagnosis Chronic Problems Leukemia (Chronic) Aortic stenosis (Chronic) HTN (hypertension) (Chronic) Hyperlipidemia (Chronic) DM2 (diabetes mellitus, type 2) (Chronic) Hospital Course and Treatment Summary of Care Provided: The patient is a 71 year old M who was transferred from the [facility] to significant pancytopenic. 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 He presented with shortness of breath and cough and tested positive for influenza A and was started on Tamiflu. He was also placed on antibiotics, his hemoglobin dropped to 7 and he was given 3 units of packed RBCs and his hemoglobin has now stabilized. Overall the patient has improved clinically and ready for discharge home. 1. Sepsis; he is hemodynamically stable, will complete the course of Tamiflu. Need to discharge an antibacterial agent. 2. Severe pancytopenia induced by chemotherapy. Follow-up with his primary oncologist and obtain CBC in 1 week. 3. Febrile neutropenia; has now resolved, he is on Tamiflu for influenza A infection . 4. Troponin elevation; this most likely represents type II NSTEMI; echocardiogram showed normal ejection fraction and right ventricular dilatation. Cardiology consulted and further testing is recommended at this time. We stopped his Plavix in light of severe pancytopenia. However maintained on baby aspirin. 5. Right ventricular dilatation; CTA chest did not reveal any evidence of pulmonary embolism. 6. Acute leukemia/MDS ; he should follow-up with his oncologist as an outpatient to continue his chemotherapy after his infection is adequately treated. 7. Hypotension; he received IV fluids and blood transfusions and this has now resolved. 9. Anemia; he received packed RBCs and hemoglobin now stable. 10. CHF with preserved left ventricular function; he appears clinically compensated. 11. Moderate Aortic stenosis; he will follow-up with his hub associate and his primary care doctor as an outpatient. Physical exam at the time of discharge; vital signs were stable. He was alert and oriented to time place and person. He did not appear to be any form of distress. S1 and S2 heard no murmur or gallop Lung exam was clear to auscultation with no adventitious sounds. Abdomen was soft nontender with normal bowel sounds. extremity exam did not reveal any edema, palpable pulses bilaterally. Neurologic exam was grossly intact. Discharge Diet: No Restrictions Discharge Activity: Return to Normal Activity Home Medications: Medications to take at Discharge Allopurinol [Zyloprim] 300 mg PO DAILY 07/24/14 Diltiazem HCl [Diltiazem 24Hr ER] 1 tablet PO DAILY 07/24/14 Metformin(XR) [Glucophage Xr] 500 mg PO BID 07/24/14 Duloxetine Hcl [Cymbalta] 60 mg PO QHS 03/15/17 Ergocalciferol [Vitamin D] 50,000 unit PO Q7D 03/15/17 Ferrous Sulfate [Iron] 325 mg PO BID 03/15/17 Furosemide [Lasix] 40 mg PO DAILY 03/15/17 Multivitamin [Multiple Vitamins] 1 each PO DAILY 03/15/17 Nitroglycerin [Nitrostat] 0.4 mg SUBLINGUAL Q5M PRN 03/15/17 Ondansetron [Zofran] 8 mg PO Q8H PRN PRN 03/15/17 Paroxetine HCl [Paxil] 30 mg PO DAILY 03/15/17 TraMADol [Ultram] 50 mg PO Q6H PRN PRN 03/15/17 Aspirin [Aspirin, Baby] 81 mg PO DAILY@0800 #30 tab.chew 04/05/17 Atorvastatin Calcium [Lipitor] 20 mg PO QHS 04/05/17 Metoprolol Tartrate [Lopressor (beta richard)] 12.5 mg PO BID 30 Days #30 tab 04/05/17 Oseltamivir Phosphate [Tamiflu] 75 mg PO BID #6 cap 04/05/17 Following Prescrptions Were Given to Patient: Metoprolol Tartrate [Lopressor (beta richard)] 12.5 mg PO BID 30 Days #30 tab Oseltamivir Phosphate [Tamiflu] 75 mg PO BID #6 cap Primary Care Physician: Denae Goldstein NP-C [Primary Care Provider] - Within 2 Weeks Disposition: Home Patient Condition:: Good Meaningful Use Info Meaningful Use Diagnoses (Choose all that apply): None applicable Code Visit Inpatient E&M: 13866 Disch Hosp
--- NOTE | 2017-04-05 14:47 | NURSING ---
called in to report that pt does not take Crestor at home, but takes 20mg of Lipitor QHS. updated home medication list.
[2017-04-07 05:01] LABS: Bedside Glucose 138 mg/dL (70-110)
[2017-04-07 15:06] LABS: Pathologist Review Reviewed
[2017-04-07 15:23] LABS: Pathologist Review Reviewed
== END 2017-04-05 13:21 | disposition home or self-care (01) | DRG 871 ==
PROVIDERS: Internal Medicine; Family Provider Nurse Practitioner Primary Care; PCP Nurse Practitioner Primary Care; Visit Provider Internal Medicine
DX: A41.9 Sepsis, unspecified organism (principal); D61.810 Antineoplastic chemotherapy induced pancytopenia; I21.A1 Myocardial infarction type 2; C92.00 Acute myeloblastic leukemia, not having achieved remission; I50.33 Acute on chronic diastolic (congestive) heart failure; I95.9 Hypotension, unspecified; I11.0 Hypertensive heart disease with heart failure; C85.90 Non-Hodgkin lymphoma, unspecified, unspecified site; I45.2 Bifascicular block; D46.9 Myelodysplastic syndrome, unspecified; T45.1X5A Adverse effect of antineoplastic and immunosuppressive drugs, initial encounter; J10.1 Influenza due to other identified influenza virus with other respiratory manifestations; E11.9 Type 2 diabetes mellitus without complications; I25.10 Atherosclerotic heart disease of native coronary artery without angina pectoris; I35.0 Nonrheumatic aortic (valve) stenosis; E78.5 Hyperlipidemia, unspecified; F32.9 Major depressive disorder, single episode, unspecified; Z79.899 Other long term (current) drug therapy; Z79.84 Long term (current) use of oral hypoglycemic drugs; Z79.02 Long term (current) use of antithrombotics/antiplatelets
CPT/HCPCS: 36415; 71010; 71275; 80048; 80061; 81001; 82962; 83605; 83880; 84484; 85014; 85018; 85025; 86850; 86900; 86920; 86922; 87040; 87081; 87086; 93005; 93306; 94640; 94762; 97802; J2185; J7030; J7040; P9040; Q9957; Q9967; A4216; C8929; J1940

== ENCOUNTER → 2017-05-12 08:04 | Outpatient (CLI) | payer MEDICARE, SELFPAY ==
[2017-05-12 08:10] VITALS: BP 130/67; PULSE 92; RESP 18; TEMP 36.8; O2SAT 93; BMI 35.6
[2017-05-12 08:45] VITALS: BP 103/54; PULSE 71; RESP 18; TEMP 36.7; O2SAT 92
[2017-05-12 09:45] VITALS: BP 116/56; PULSE 69; RESP 18; TEMP 37.1; O2SAT 96
[2017-05-12 10:44] VITALS: BP 129/69; PULSE 73; RESP 18; TEMP 36.6; O2SAT 98
== END ==
PROVIDERS: Family Provider Nurse Practitioner Primary Care; PCP Nurse Practitioner Primary Care; Visit Provider Internal Medicine Hematology & Oncology
DX: D46.4 Refractory anemia, unspecified (principal)
CPT/HCPCS: 36430; 86850; 86900; 86920; 86922; J7040; P9040; A4216

== ENCOUNTER → 2017-06-09 09:34 | Outpatient (CLI) | payer MEDICARE, SELFPAY ==
[2017-06-09 09:42] VITALS: BP 93/44; PULSE 63; RESP 16; TEMP 37.5; O2SAT 98; BMI 33.7
[2017-06-09 10:41] VITALS: BP 90/38; PULSE 60; RESP 16; TEMP 37.4; O2SAT 95
[2017-06-09 11:41] VITALS: BP 106/45; PULSE 60; RESP 16; TEMP 37.4; O2SAT 93
[2017-06-09 12:13] VITALS: BP 98/42; PULSE 62; RESP 16; TEMP 37.2; O2SAT 100
== END ==
PROVIDERS: Visit Provider Internal Medicine Hematology & Oncology
DX: D46.4 Refractory anemia, unspecified (principal)
CPT/HCPCS: 36430; 86850; 86900; 86920; 86922; J7040; P9040; A4216

== ENCOUNTER 2017-06-13 09:40 | Outpatient (CLI) | payer MEDICARE, SELFPAY ==
[2017-06-13 10:19] VITALS: BP 108/52; PULSE 79; RESP 18; TEMP 36.8; O2SAT 96
[2017-06-13 10:26] VITALS: BP 96/49; PULSE 76; RESP 16; TEMP 36.9; O2SAT 96
[2017-06-13 10:41] VITALS: BP 117/51; BP 122/62; PULSE 74; PULSE 77; RESP 16; TEMP 36.8; TEMP 37.1; O2SAT 97; O2SAT 99
== END 2017-06-13 12:25 | disposition home or self-care (01) ==
LOC: MEDOUTP 09:41 → MS3 09:41
PROVIDERS: Visit Provider Internal Medicine Hematology & Oncology
DX: Z51.89 Encounter for other specified aftercare (principal); D46.4 Refractory anemia, unspecified
CPT/HCPCS: 36430; 86644; 86850; 86900; 86920; 86922; P9040

== ENCOUNTER → 2017-06-16 08:32 | Outpatient (CLI) | payer MEDICARE, SELFPAY ==
[2017-06-16 09:01] VITALS: BP 101/48; PULSE 88; RESP 16; TEMP 37.3; O2SAT 98; BMI 35.2
[2017-06-16 10:07] VITALS: BP 104/51; PULSE 75; RESP 18; TEMP 36.9; O2SAT 100
[2017-06-16 11:07] VITALS: BP 121/42; PULSE 75; RESP 18; TEMP 37.3; O2SAT 99
[2017-06-16 11:46] VITALS: BP 106/51; PULSE 74; RESP 18; TEMP 36.4; O2SAT 98
== END ==
PROVIDERS: Visit Provider Internal Medicine Hematology & Oncology
DX: D46.4 Refractory anemia, unspecified (principal)
CPT/HCPCS: 36430; 86850; 86900; 86920; 86922; J7050; P9040; A4216

== ENCOUNTER 2017-06-20 07:59 | Outpatient (CLI) | payer MEDICARE, SELFPAY ==
[2017-06-20] VITALS (8 sets, daily range): BP systolic 87–129; BP diastolic 42–62; PULSE 64–78; RESP 16–18; TEMP 36.6–37; O2SAT 95–100
[2017-06-20] MEDS: Acetaminophen 325 MG Tablet 650 MG PO (08:57)
--- NOTE | 2017-06-20 12:37 | NURSING ---
resting in bed, 2nd unit of prbc infusing, rate increased. denies further needs
== END 2017-06-20 14:26 | disposition home or self-care (01) ==
LOC: MEDOUTP 07:59 → MS3 08:21
PROVIDERS: Family Provider Nurse Practitioner Primary Care; PCP Nurse Practitioner Primary Care; Visit Provider Internal Medicine Hematology & Oncology
DX: D46.9 Myelodysplastic syndrome, unspecified (principal); D64.9 Anemia, unspecified
CPT/HCPCS: 36430; 86850; 86900; 86920; 86922; J7040; P9040

== ENCOUNTER → 2017-07-14 07:58 | Outpatient (CLI) | payer MEDICARE, SELFPAY ==
[2017-07-14 08:10] VITALS: BP 111/56; PULSE 69; RESP 16; TEMP 37.2; O2SAT 99; BMI 34.7
[2017-07-14 08:50] VITALS: BP 100/48; PULSE 64; RESP 16; TEMP 37.3; O2SAT 95
[2017-07-14 09:50] VITALS: BP 119/60; PULSE 69; RESP 18; TEMP 36.9; O2SAT 96
[2017-07-14 10:39] VITALS: BP 111/77; PULSE 68; RESP 18; TEMP 37.2; O2SAT 100
== END ==
PROVIDERS: Family Provider Nurse Practitioner Primary Care; PCP Nurse Practitioner Primary Care; Visit Provider Internal Medicine Hematology & Oncology
DX: Z51.89 Encounter for other specified aftercare (principal); D46.20 Refractory anemia with excess of blasts, unspecified; D46.4 Refractory anemia, unspecified; I50.9 Heart failure, unspecified
CPT/HCPCS: 36430; 86850; 86900; 86920; 86922; J7040; P9040; A4216

== ENCOUNTER → 2018-05-18 12:42 | Outpatient (CLI) | payer MEDICARE, SELFPAY ==
[2018-05-12 10:45] VITALS: BMI 35.6
--- NOTE | 2018-05-18 12:45 | CT_ITS ---
STUDY: CTA OF THE ABDOMINAL AORTA AND BILATERAL LOWER EXTREMITIES REASON FOR EXAM: Male, 73 years old. Right leg pain and nonhealing wound on right foot. Atherosclerotic change. History of chemotherapy and radiation therapy for testicular cancer with right orchiectomy. RADIATION DOSAGE (If Supplied By Facility): CTDIvol = ( 8.57 ) mGy, DLP = ( 1841.17 ) mGycm TECHNIQUE: Axial CT angiography multi-detector data acquisition was obtained from the diaphragm to the feet following intravenous administration of 100 ml of Isovue 370 contrast. Axial images and MIP images were reconstructed from the axial data set. Post-processing of the angiographic images was performed, with multiplanar reformation and 3D reconstruction. Individualized dose optimization techniques were used for this CT. TECHNICAL QUALITY: Good COMPARISON: January 25, 2014. Descriptors of Narrowing: None (0%) Mild (< 50%) Moderate (50-70%) Severe (70-90%) Subtotal/Total Occlusion (90-100%) Non-Evaluable (technically non-diagnostic FINDINGS: Abdominal aorta: There is atherosclerotic changes of the abdominal aorta without stenosis dissection or aneurysm. Celiac and superior mesenteric arteries: There is atherosclerotic changes at the origin of both the celiac artery and SMA without significant stenosis. Inferior mesenteric artery: No demonstrated narrowing. Right renal artery(arteries): There are atherosclerotic changes with mild narrowing at the origin of the right renal artery. Left renal artery(arteries): There is atherosclerotic changes with mild narrowing at the origin of the left renal artery. Right common iliac artery: Atherosclerotic chronic changes with mild narrowing. Right external iliac artery: No demonstrated narrowing. Right internal iliac artery: Atherosclerotic changes with mild narrowing. Left common iliac artery: Atherosclerotic changes with mild narrowing Left external iliac artery: No demonstrated narrowing. Left internal iliac artery: Atherosclerotic changes with mild narrowing RIGHT LOWER EXTREMITY Right common femoral artery: Atherosclerotic changes with mild narrowing. Right profundus femoris: Atherosclerotic changes with mild narrowing. Right superficial femoral: There is moderate narrowing at the proximal superficial femoral artery just beyond the bifurcation. Mild narrowing is seen more distally. There is severe narrowing of the distal artery above and at the level of Htang's canal. Right popliteal artery: Atherosclerotic changes with mild narrowing. Right tibioperoneal trunk: Atherosclerotic changes with mild narrowing. Right anterior tibial artery: There is approximately 50 or greater percent stenosis of the proximal anterior tibial artery. Mild atherosclerotic changes are seen in the lower vessel which can be followed into the foot without occlusion. Right posterior tibial artery: Minimal atherosclerotic changes. The vessel can be followed into the foot. Right peroneal artery: Mild stenosis without occlusion. LEFT LOWER EXTREMITY Left common femoral artery: Atherosclerotic changes with mild stenosis. Left profundus femoris: Atherosclerotic changes with mild stenosis. Left superficial femoral: Atherosclerotic changes with mild stenosis proximally. There is moderate narrowing in the mid to distal artery. Left popliteal artery: Mild stenosis in the visualized artery. The vessels posterior to the knee is poorly visualized due to scatter artifact from the right artificial knee. Left tibioperoneal trunk: Atherosclerotic changes with moderate stenosis. Left anterior tibial artery: There is moderate stenosis of proximal anterior tibial artery. Mild atherosclerotic changes are seen distally. The vessel is patent into the foot. Left posterior tibial artery: Minimal atherosclerotic changes proximally without narrowing. The artery can be followed into the foot. Left peroneal artery: Mild proximal atherosclerotic changes. The artery can be followed into the foot. There is a small right pleural effusion with atelectasis. The lungs appear otherwise clear. The heart is normal in size with evidence of prior CABG procedure. The liver is grossly normal. Status post cholecystectomy. Normal spleen. Normal pancreas. Normal adrenal glands. Normal kidneys. There are multiple surgical clips in the pelvis in the region of the renal emiliano and extending downward along the aorta to the bifurcation thought to be secondary to prior ignacia dissection. The IVC appears normal. There is no retroperitoneal lymphadenopathy. Normal stomach. Normal small bowel. Normal colon. The appendix is not visualized. Normal urinary bladder. Normal prostate. There is no pelvic lymphadenopathy. There is mild ascites in the subphrenic spaces, paracolic gutters and pelvis. No free air is seen within the abdominal cavity. There is an umbilical hernia of omental fat. There is a supraumbilical hernia of mental fat There is mild stranding of the subcutaneous fat in the bilateral flanks and anterior abdominal wall. There are degenerative changes of the lumbar spine and hips. CT/CTA Abd w/Runoff W/WO Contrast IMPRESSION: 1. Atherosclerotic changes of the abdominal aorta without stricture, aneurysm or dissection. 2. Marked stenosis of the distal right superficial femoral artery. This appears advanced from the prior study. 3. There is moderate narrowing of the proximal SFA as well as of the proximal anterior tibial artery. There is no occlusion. 4. Atherosclerotic changes of the left lower extremity with moderate narrowing in the proximal anterior tibial artery. There is no occlusion. 5. Mild ascites. 6. Mild right pleural effusion. 7. Multiple surgical clips in the retroperitoneum suggesting prior ignacia resection. 8. Ventral hernia also omental fat. Electronically Signed: Hernando Gonsales DO at 16:13 EST Tel [phone], Service support ,
== END ==
PROVIDERS: Family Provider Nurse Practitioner Primary Care; PCP Nurse Practitioner Primary Care; Referring Provider Surgery Vascular Surgery; Visit Provider Surgery Vascular Surgery
DX: I70.213 Atherosclerosis of native arteries of extremities with intermittent claudication, bilateral legs (principal)
CPT/HCPCS: 75635; Q9967

== ENCOUNTER 2018-06-25 07:00 | Inpatient (IN) | payer MEDICARE, SELFPAY ==
[2018-05-12 10:45] VITALS: BMI 35.6
[2018-06-25] VITALS (28 sets, daily range): BP systolic 81–129; BP diastolic 13–64; PULSE 73–92; RESP 14–21; TEMP 36.2–37.1; O2SAT 94–100; BMI 33.6; BMI 32.8
--- NOTE | 2018-06-25 07:16 | EKG12_ITS ---
Test Reason : WEAKNESS Blood Pressure : / mmHG Vent. Rate : 080 BPM Atrial Rate : 080 BPM P-R Int : 170 ms QRS Dur : 170 ms QT Int : 440 ms P-R-T Axes : 068 -77 039 degrees QTc Int : 507 ms Normal sinus rhythm Right bundle branch block Left anterior fascicular block Bifascicular block Abnormal ECG Confirmed by DAVID JOHNSON, REHAN ([id number]), market editor LORNA FERMIN ([id number]) on 06/28/2018 11:10:40 AM Referred By: SAE Confirmed By:REHAN HERNANDEZ MD
--- NOTE | 2018-06-25 07:21 | ED.VISSUMM ---
- ER Visit Summary Date of Service: 06/25/18 Chief Complaint: Weakness, anemia History of Present Illness: The patient is a 73 M with generalized weakness. Patient had chemotherapy yesterday secondary to history of testicular cancer, non-Hodgkin's lymphoma, leukemia. Patient had blood work done yesterday while he was at chemo that revealed anemia with a hemoglobin down to 7.0. He had type and cross performed and was scheduled to come in today to receive 2 units of blood. Yesterday he had 2 episodes of syncope. He states he was walking down the hallway at the time, became lightheaded, and passed out. He denies any injury. He denies having chest pain or palpitations. Physical Examination: Blood pressure is 93/38, temperature 98.6, heart rate 73, respiratory rate 21, pulse ox 100% on room air. Patient is sitting upright in bed. He had does appear pale. Head neck examination reveals small area of erythema consistent with contusion along the left methodist. The area is not tender. Heart is regular rate and rhythm. Lung sounds clear. Abdomen is soft and nontender. Neuro exam reveals no focal deficits. Test Results: EKG is sinus 80 with a bifascicular block. This is unchanged when compared to prior. CBC was a white count of 2.4 and a hemoglobin of 5.6. Hemoglobin on the was 7.0 and on the was 10.4. His platelet count is 68,000. His chemistry studies reveal a sodium of 123 and a chloride of 87. His sodium was last checked on June 10 and was 135. His glucose is 181. His BUN is 89 and his creatinine is 1.68. Emergency Department Course and Treatment: Patient had blood started that was already typed and ready in the blood bank. Blood pressures have improved and most recent is 107/45. Patient continues to have no complaints. I discussed the case with Dr. Hill, the patient's oncologist. He states that the patient is likely bleeding secondary to his Plavix. Rectal exam was performed and stool guaiac is negative. Dr. Hill recommended transfusion to keep the patient's hemoglobin over 8 and holding the Plavix. He recommended putting the patient in the ICU. At this time the patient is hemodynamically stable and improving with our treatment. I do not believe he meets criteria for ICU placement. I spoke with Dr. Dunn he will be glad to consult if the patient does need to go to the floor rather than the ICU. I will speak with the hospitalist. Treatment Plan: [] Disposition: Admit Impression: 1. Anemia 2. Hyponatremia 3. Hypotension, improved 4. Syncope This note was generated with enavu dictation software. It may contain incorrect words, spelling, and punctuation that were not noted in review of the chart prior to signing ED Disposition - Plan for ED Patient: Referrals: Denae Goldstein, NICOLE-C [Primary Care Provider] -
[2018-06-25 08:12] LABS: Hematocrit 15.4 % (40-54); Mean Corp Hgb Conc 36.4 g/gl (32-36); Mean Corpuscular Hgb 40.9 pg (27.0-32.0); Mean Corpuscular Volume 112.4 fL (80-94); Mean Platelet Vol. 10.2 fl (6.2-12.0); Platelet Count 68 K/mm3 (150-450); RBC Distribution Width CV 16.5 % (11.6-14.6); RBC Distribution Width SD 67.7 fl (35.1-43.9); Red Blood Count 1.37 M/mm3 (4.6-6.2); White Blood Count 2.4 K/mm3 (4.4-11.0)
[2018-06-25 08:13] LABS: Anion Gap 14 (5-15); BUN 89 mg/dL (7-18); Calcium,Total 8.6 mg/dL (8.5-10.1); Chloride 87 mmol/L (98-107); Creatinine, Serum 1.68 mg/dL (0.70-1.30); EST Glomerular Filtration Rate 43 mL/min (>60); Est Glom Filt Rate - Afr Amer 52 mL/min (>60); Estimated Creatinine Clearance 39.02 ml/min; Glucose 181 mg/dL (74-106); Potassium 5.5 mmol/L (3.5-5.1); Sodium Level 123 mmol/L (136-145)
[2018-06-25 08:14] LABS: Hemoglobin 5.6 g/dl (13.0-16.5); POSITIVE COUNT YES; POSITIVE DIFFERENTIAL NO; POSITIVE MORPHOLOGY YES
[2018-06-25 08:37] LABS: Differential Indicated MANUAL DIFF
[2018-06-25 08:44] LABS: Blast 15 % (0-0); Lymphocyte 25 % (19-41); Monocyte 4 % (0-10); Neutrophil-Segmented 56 % (47-70); Total Cells Counted 100 (MANUAL DIFF)
[2018-06-25 08:45] LABS: Anisocytosis 1+; Hypochromasia 1+; Platelet Estimate MOD DEC (ADEQ)
[2018-06-25 08:46] LABS: Absolute Neutrophil Count 1.3 X10^3/uL (2.0-7.7); Scan Smear per Review Criteria MANUAL DIFF
[2018-06-25] MEDS: Ondansetron 4 MG/2 ML Vial IV (08:54)
[2018-06-25] MEDS: Acetaminophen 325 MG Tablet 650 MG PO (08:54)
--- NOTE | 2018-06-25 10:14 | NURSING ---
DR SWARTZ FOR DR QUEVEDO
--- NOTE | 2018-06-25 10:14 | NURSING ---
DR ZIMMER PAGED AND RETURNED CALL
--- NOTE | 2018-06-25 10:22 | NURSING ---
PCU ANEMIA, HYPONATREMIA MAXIME
[2018-06-25] MEDS: 0.9% Normal Saline 1,000 ML 150 ML IV (10:35)
--- NOTE | 2018-06-25 11:35 | CASEMGMT ---
RN CM Assessment Introduced role of RN CM to patient and Orly at bedside.? Patient is alert, oriented and able?to participate in RN CM Assessment. ?Care providers, pharmacy, and demographics verified. Presentation: Weakness, Low Hgb Admit Dx: Anemia Re-Admit: No Barriers/Issues: None PCP: Denae Goldstein Specialists: Cardio- Brianne, Onc- Jim, Vasc- Brennan [facility] Insurance: O Medicare Rx Benefit:?Yes ?LNOK: Orly Bradley LW/HPOA: Believes did LW last time was here and on file. Would like to speak with SW for Info for HPOA/LW- if not done. Living Arrangements:? Lives with in a SS Home ADL?s: Independent with ambulation and ADL's Transportation: Patient drives, to drive on DC DME: Glucometer, walker available if needed to use. No Preference on DME Company. HHC: None SNF: None Goal: Would like to go home and does not want any HH, states capable of helping him if needed. DC PLAN: Home with no anticipated needs identified at this time. Carlos Reed RNCM
--- NOTE | 2018-06-25 12:15 | CASEMGMT ---
MITCHELL ALVAREZ assessment: Face to Face with patient for initial transition planning/care coordination assessment. MITCHELL ALVAREZ introduced self and role at [facility], pt voices understanding and consents to assessment at this time. Pt is sitting up on side of bed in no distress at this time. Pt is A/Ox4 at this time and answers all questions appropriately at this time. Pt's at bedside during assessment. Care providers, pharmacy, and demographics verified at this time. PCP: Denae Goldstein Specialists: Sergio, hematology/oncology [facility]erred [facility]acy: [facility] Insurance: [employer]1 Prescription Benefit: MMOMCR Living Will/HPOA: Pt states does not have LW/HPOA but would like to complete at this time. Juancarlos SW aware, voices understanding. LNOK: Orly Kirk, Living Arrangements: Pt states lives in 1 story home with and states no concerns at home at this time. Pt states is normally independent with ADL's. Transportation: Pt states drives self and states no transportation concerns at this time. DME/HHC: Pt states has a shower chair that uses occasionally, walker that he does not use, and then home oxygen 2liters at bedtime thru [facility]. Pt was 100%RA upon arrival to ED triage. Pt states no hx of HHC or SNF in the past. Pt/ state no concerns with going home at time of discharge. Pt is retired. Pt states does not smoke or drink ETOH. Pt states no further concerns/needs at this time. CM to follow for any further discharge planning/needs. Advised pt/ to ask for CM if any further questions/concerns/needs arise, voices understanding. Plan: Home [place] MITCHELL ALVAREZ
--- NOTE | 2018-06-25 12:20 | HP.PCM_ITS ---
Problem List (1) Anemia Status: Acute (2) Myelodysplasia (myelodysplastic syndrome) Status: Chronic (3) CAD (coronary artery disease) Status: Chronic (4) PAD (peripheral artery disease) Status: Chronic (5) Aortic stenosis Status: Chronic (6) DM2 (diabetes mellitus, type 2) Status: Chronic (7) HTN (hypertension) Status: Chronic (8) Hyperlipidemia Status: Chronic (9) Leukemia Status: Chronic (10) Non-Hodgkin lymphoma Status: Resolved (11) Testicular cancer Status: Resolved History of Present Illness Date of Admission: 06/25/18 Chief Complaint: syncope The patient is a 73 year old M with pmhx of AML, NHL, testicular cancer, pt of Dr. Eller/Sergio who receiveded chemo yesterday, also with pmhx of CAD with prior CABG/stents, PAD with prior stent, DMt2, HTN, who presents to the ER with syncope. He passed out twice yesterday while ambulating. He came to the ER with LH and SOB. His Hgb was 7 yesterday, today it is 5.6 in the ER. He received 1 unit in the ER and is feeling somewhat improved but still mildly SOB and LH sitting up on the side of the bed. He has no CP, palp, cough, abdominal pain. He has had no black or bloody stools. His hemoccult is negative. [] Past Medical History Past Medical History (Chronic Problems): Chronic Problems Myelodysplasia (myelodysplastic syndrome) (Chronic) CAD (coronary artery disease) (Chronic) PAD (peripheral artery disease) (Chronic) DM2 (diabetes mellitus, type 2) (Chronic) Hyperlipidemia (Chronic) HTN (hypertension) (Chronic) Aortic stenosis (Chronic) Leukemia (Chronic) Allergies Penicillins [PCN] Allergy (Verified 06/25/18 07:13) Other Sulfa (Sulfonamide Antibiotics) Allergy (Verified 06/25/18 07:13) Rash gabapentin Adverse Reaction (Verified 06/25/18 07:13) Other morphine Adverse Reaction (Verified 06/25/18 07:13) Other halluciations Home Medications: Ambulatory Orders Medication Instructions Recorded Allopurinol [Zyloprim] 300 mg PO DAILY 07/24/14 Metformin(XR) [Glucophage Xr] 500 mg PO BID 07/24/14 Ferrous Sulfate [Iron] 325 mg PO BID 03/15/17 Furosemide [Lasix] 40 mg PO DAILY 03/15/17 Multivitamin [Multiple Vitamins] 1 each PO DAILY 03/15/17 Nitroglycerin [Nitrostat] 0.4 mg SUBLINGUAL Q5M PRN 03/15/17 Ondansetron [Zofran] 8 mg PO Q8H PRN PRN 03/15/17 Paroxetine HCl [Paxil] 30 mg PO DAILY 03/15/17 Aspirin [Aspirin, Baby] 81 mg PO DAILY@0800 #30 tab.chew 04/05/17 Atorvastatin Calcium [Lipitor] 20 mg PO QHS 04/05/17 Metoprolol Tartrate [Lopressor 12.5 mg PO BID 30 Days #30 tab 04/05/17 (beta richard)] Furosemide [Lasix] 20 mg PO DAILY 04/21/17 Potassium Chloride [Klor-Con] 20 meq PO BID 04/28/17 Magnesium Oxide [Magnesium] 400 mg PO BID 06/09/17 Azacitidine [Vidaza] 100 mg IJ 07/14/17 Ascorbic Acid [Vitamin C with Jacklyn 1,000 mg PO DAILY 06/25/18 Hips] Clopidogrel Bisulfate [Plavix] 75 mg PO DAILY 06/25/18 Echinacea 1,200 mg PO DAILY 06/25/18 Oxycodone HCl/Acetaminophen 1 each PO TID 06/25/18 [Oxycodon-Acetaminophen 7.5-325] Quinapril HCl 10 mg PO DAILY 06/25/18 Spironolactone [Aldactone] 50 mg PO BID 06/25/18 Surgical History: cholecystectomy, coronary bypass surgery, - - arterial bypass peripheral ext, neck bone spur removal, mediport Psychiatric History: Depression Lives: Spouse/ Significant Other Smoking Status: Former smoker Tobacco Use: Non-smoker Alcohol: None Drugs: None - *Family History Maternal History Items: Heart Disease - of a ruptured aneurysm Paternal History Items: Heart Disease Review of Systems Constitutional: Reports: Weakness, Fatigue. Denies: Chills, Fever, Weight Change HEENT: Denies: Head Aches, Sinus Congestion, Sinus Drainage Cardiovascular: Reports: Light Headedness. Denies: Chest Pain, Chest Pressure, Chest Tightness, Edema, Heaviness, Palpitations Respiratory: Reports: Shortness of Breath. Denies: Cough, Shortness of breath at rest, Sputum production Gastrointestinal: Denies: Abdominal Pain, Nausea, Vomiting Genitourinary: Denies: Dysuria Musculoskeletal: Denies: Joint Pain, Joint Tenderness Skin: Denies: Rash, Wounds Neurological: Denies: Numbness, Tingling, Focal weakness Psychiatric: Denies: Anxiety, Depression, Homicidal Ideations, Suicidal Ideations Hematologic/ Lymphatic: Denies: Easy Bruising, Easy Bleeding VTE Information - Inpt Only VTE Present on Admission: No VTE Mechan Device Prophylaxis: None VTE Pharm Prophylaxis ordered?: No Reason prophylaxis not ordered:: Medical Contraindication Patient Problems: Active and Suspected Problems Anemia (Acute) - Physical Exam General: Alert, Oriented x3, Cooperative HEENT: Atraumatic, PERRLA, EOMI, Normocephalic Neck: Supple, No JVD, Negative Carotid Bruits Lungs: Clear to auscultation, Normal air movement Cardiovascular: Regular rate, Murmur - 3/7 systolic best heard over LSB Abdomen: Bowel Sounds Present, Soft, Non Tender Extremities: No edema, Capillary Refill Less than 3 Seconds Skin: No rashes, No breakdown Musculoskeletal: No Tenderness to Palpation of Joints or Extremities Neurological: Cranial nerves II-XII grossly intact Psych/Mental Status: Normal Affect, Appropriate, Alert and oriented to time, place, person, mood and affect Vital Signs Temp Pulse Resp BP Pulse Ox 98.4 F 85 17 107/14 L 100 06/25/18 12:02 06/25/18 12:02 06/25/18 12:02 06/25/18 12:02 06/25/18 12:02 Oxygen Delivery Method Room Air Weight: 215 lb 9.793 oz Body Mass Index (BMI) 32.8 Intake and Output for Last 24 Hours 06/23/18 06/24/18 06/25/18 23:59 23:59 23:59 Intake Total 400 / 400 Balance 400 / 400 Microbiology Past 72 Hours 06/25/18 08:55 Stool Occult Blood (RODNEY) - Final Stool Laboratory Tests Past 24 Hrs 06/24/18 06/25/18 06/25/18 11:03 07:50 07:50 WBC 2.4 L RBC 1.37 L Hgb 5.6 L* Hct 15.4 L MCV 112.4 H MCH 40.9 H MCHC 36.4 H RDW 16.5 H RDW Differential 67.7 H Plt Count 68 L MPV 10.2 Immature Gran % (Auto) [place] Neut % (Auto) [place] Lymph % (Auto) [place] % (Auto) [place] Eos % (Auto) [place] Baso % (Auto) [place] Absolute Neuts (auto) 1.3 L Absolute Lymphs (auto) 0.60 L Total Counted 100 Neutrophils % (Manual) 56 Lymphocytes % (Manual) 25 Monocytes % (Manual) 4 Blast Cells % 15 H* Diff Path Review May foll Platelet Estimate MOD DEC Hypochromasia 1+ Anisocytosis 1+ Sodium 123 L Potassium 5.5 H Chloride 87 L Carbon Dioxide 22.0 Anion Gap 14 BUN 89 H Creatinine 1.68 H Estim Creat Clear Calc 39.02 Est GFR (MDRD) Af Amer 52 L Est GFR (MDRD) Non-Af 43 L BUN/Creatinine Ratio 53.0 H Glucose 181 H Calcium 8.6 Blood Type O POSITIVE Antibody Screen NEGATIVE Crossmatch See Detail Assessment/Plan All Active Problems Anemia (Acute) Testicular cancer (Resolved) Non-Hodgkin lymphoma (Resolved) Sepsis (Acute) Neutropenic fever (Acute) 1. Syncopy 2/2 worsening of Chronic anemia - MDS/AML - pt of Dr. Hill/Rafita, also with hx of testicular cancer and NHL who received chemo yesterday and then had 2 syncopal episodes while ambulating and currently dizzy/SOB. He is improving with blood, will receive 2nd unit. Will trend CBC. -hemoccult stool neg. hold asp/plavix for now, give protonix IV empirically. Last colonoscopy 1 year ago reportedly with no issues. -continue iron 2. Pancytopenia 2/2 MDS 3. Hx CAD ok to continue statin 4. hx PAD with prior arterial stent 5. DMt2 with obesity - hold orals - SSI 6. HTN - borderline, hold antihypertensives 7. Depression - paxil/cymbalta DVT ppx: SCDs This patient was seen by Kristopher Sosa PA-C under the supervision of Doctor Sorenson.
[2018-06-25] MEDS: Insulin Lispro 100 UNIT/ML INSULN.PEN SC ×2 (12:37→22:19)
[2018-06-25 12:56] LABS: Bedside Glucose 197 mg/dL (70-110)
--- NOTE | 2018-06-25 14:13 | CASEMGMT ---
SW met with patient, introduced self and role at [facility]. SW talked with patient and his about Healthcare POA and Healthcare LW. Patient said he would like to look at documents first. SW told him that there is a SW here on Thursday and if he is still here on Thursday and wants to do the documents SW can assist. He thanked SW. Alfreda PRICE MSW
[2018-06-25] MEDS: Ferrous Sulfate 325 MG Tablet PO (17:05)
[2018-06-25 17:11] LABS: Bedside Glucose 209 mg/dL (70-110)
[2018-06-25 18:32] LABS: Hematocrit 18.7 % (40-54); Hemoglobin 6.9 g/dl (13.0-16.5); Mean Corp Hgb Conc 36.9 g/gl (32-36); Mean Corpuscular Hgb 35.4 pg (27.0-32.0); Mean Corpuscular Volume 95.9 fL (80-94); Mean Platelet Vol. 10.3 fl (6.2-12.0); Red Blood Count 1.95 M/mm3 (4.6-6.2); White Blood Count 2.3 K/mm3 (4.4-11.0)
[2018-06-25 19:09] LABS: Differential Indicated MANUAL DIFF; POSITIVE COUNT YES; POSITIVE DIFFERENTIAL YES; POSITIVE MORPHOLOGY YES
[2018-06-25 19:24] LABS: Basophil 1 % (0-1); Blast 17 % (0-0); Lymphocyte 32 % (19-41); Monocyte 7 % (0-10); Neutrophil-Band 1 % (0-5); Neutrophil-Segmented 42 % (47-70); Total Cells Counted 100 (MANUAL DIFF)
[2018-06-25 19:26] LABS: Platelet Count 43 K/mm3 (150-450)
[2018-06-25 19:29] LABS: Anisocytosis 2+; Platelet Estimate MKD DEC (ADEQ)
[2018-06-25 19:30] LABS: Absolute Lymphocyte Count 0.75 X10^3/ul (0.83-4.51)
[2018-06-25] MEDS: 0.9% NaCl Peripheral Flush Adult/Peds IV (22:18)
[2018-06-25] MEDS: DULoxetine Hcl 60 MG Capsule PO (22:18)
[2018-06-25] MEDS: Metoprolol Tartrate 25 MG Tablet 12.5 MG PO (22:20)
[2018-06-25] MEDS: Atorvastatin Calcium 20 MG Tablet PO (22:20)
[2018-06-25 22:36] LABS: Bedside Glucose 196 mg/dL (70-110)
[2018-06-25] MEDS: MELATONIN 3 MG TABLET PO (23:19)
[2018-06-26] VITALS (30 sets, daily range): BP systolic 70–121; BP diastolic 22–63; PULSE 67–90; RESP 14–20; TEMP 36.4–36.8; O2SAT 84–100
[2018-06-26 06:30] LABS: Basophil# 0.02 X10^3/uL; Eosinophil# 0.01 X10^3/uL; Hemoglobin 8.4 g/dl (13.0-16.5); Mean Corp Hgb Conc 36.5 g/gl (32-36); Mean Corpuscular Hgb 33.9 pg (27.0-32.0); Mean Corpuscular Volume 92.7 fL (80-94); Mean Platelet Vol. 10.2 fl (6.2-12.0); Monocyte# 0.27 X10^3/uL; RBC Distribution Width CV 23.4 % (11.6-14.6); Red Blood Count 2.48 M/mm3 (4.6-6.2); White Blood Count 2.6 K/mm3 (4.4-11.0)
[2018-06-26 06:32] LABS: Differential Indicated SCAN CRITERIA MET; POSITIVE COUNT YES; POSITIVE DIFFERENTIAL NO; POSITIVE MORPHOLOGY YES; Platelet Count 39 K/mm3 (150-450)
[2018-06-26 06:53] LABS: Anion Gap 11 (5-15); BUN 68 mg/dL (7-18); BUN/Creat Ratio 61.3 RATIO (10-20); Calcium,Total 7.9 mg/dL (8.5-10.1); Chloride 96 mmol/L (98-107); Creatinine, Serum 1.11 mg/dL (0.70-1.30); EST Glomerular Filtration Rate 69 mL/min (>60); Est Glom Filt Rate - Afr Amer 84 mL/min (>60); Estimated Creatinine Clearance 59.05 ml/min; Glucose 178 mg/dL (74-106); Potassium 4.9 mmol/L (3.5-5.1); Sodium Level 127 mmol/L (136-145)
[2018-06-26 07:06] LABS: Bedside Glucose 201 mg/dL (70-110)
[2018-06-26 07:11] LABS: Blast 26 % (0-0); Lymphocyte 31 % (19-41); Monocyte 5 % (0-10); Neutrophil-Band 2 % (0-5); Neutrophil-Segmented 36 % (47-70); Total Cells Counted 100 (MANUAL DIFF)
[2018-06-26 07:12] LABS: Scan Smear per Review Criteria MANUAL DIFF
[2018-06-26 07:14] LABS: Absolute Lymphocyte Count 0.81 X10^3/ul (0.83-4.51); Lymphocyte # 0.81 X10^3/ul (4.0); Neutrophil # 0.99 X10^3/uL (2.7-7.7)
[2018-06-26 07:15] LABS: Platelet Estimate MKD DEC (ADEQ)
[2018-06-26 07:16] LABS: Crenated RBC RARE
[2018-06-26 07:17] LABS: Anisocytosis 2+; Ovalocyte RARE; Schistocytes RARE
[2018-06-26] MEDS: Insulin Lispro 100 UNIT/ML INSULN.PEN SC ×2 (08:36→12:42)
[2018-06-26] MEDS: Ascorbic Acid 500 MG Tablet 1000 MG PO (08:37)
[2018-06-26] MEDS: Ferrous Sulfate 325 MG Tablet PO ×2 (08:37→17:20)
[2018-06-26] MEDS: Lisinopril 10 MG Tablet PO (10:28)
[2018-06-26] MEDS: Metoprolol Tartrate 25 MG Tablet 12.5 MG PO (10:28)
[2018-06-26] MEDS: Allopurinol 300 MG Tablet PO (10:28)
[2018-06-26] MEDS: PARoxetine 10 MG Tablet 30 MG PO (10:28)
[2018-06-26] MEDS: 0.9% NaCl Peripheral Flush Adult/Peds IV ×3 (10:31→17:20)
--- NOTE | 2018-06-26 10:42 | NURSING ---
Student nurse charting reviewed.
--- NOTE | 2018-06-26 11:07 | DCINST_ITS ---
- Discharge Diagnoses Current Active Problems: Current Active and Chronic Problems Anemia (Acute) Myelodysplasia (myelodysplastic syndrome) (Chronic) CAD (coronary artery disease) (Chronic) PAD (peripheral artery disease) (Chronic) You will use the following diet at home:: No restrictions Your food should be the consistency of: Regular Your liquids should be the consistency of: Regular/Thin Discharge Activity: Return to Normal Activity Allergies/Adverse Reactions: Allergies Penicillins [PCN] Allergy (Verified 06/25/18 07:13) Other Sulfa (Sulfonamide Antibiotics) Allergy (Verified 06/25/18 07:13) Rash gabapentin Adverse Reaction (Verified 06/25/18 07:13) Other morphine Adverse Reaction (Verified 06/25/18 07:13) Other halluciations Medications to take at Discharge Allopurinol [Zyloprim] 300 mg PO DAILY 07/24/14 Metformin(XR) [Glucophage Xr] 500 mg PO BID 07/24/14 Ferrous Sulfate [Iron] 325 mg PO BID 03/15/17 Multivitamin [Multiple Vitamins] 1 each PO DAILY 03/15/17 Nitroglycerin [Nitrostat] 0.4 mg SUBLINGUAL Q5M PRN 03/15/17 Ondansetron [Zofran] 8 mg PO Q8H PRN PRN 03/15/17 Paroxetine HCl [Paxil] 30 mg PO DAILY 03/15/17 Atorvastatin Calcium [Lipitor] 20 mg PO QHS 04/05/17 Metoprolol Tartrate [Lopressor (beta richard)] 12.5 mg PO BID 30 Days #30 tab 04/05/17 Potassium Chloride [Klor-Con] 20 meq PO BID 04/28/17 Magnesium Oxide [Magnesium] 400 mg PO BID 06/09/17 Azacitidine [Vidaza] 100 mg IJ 07/14/17 Ascorbic Acid [Vitamin C with Jacklyn Hips] 1,000 mg PO DAILY 06/25/18 Echinacea 1,200 mg PO DAILY 06/25/18 Oxycodone HCl/Acetaminophen [Oxycodon-Acetaminophen 7.5-325] 1 each PO TID 06/25/18 Quinapril HCl 10 mg PO DAILY 06/25/18 Spironolactone [Aldactone] 25 mg PO BID #0 06/26/18 Primary Care Physician: Denae Goldstein NP-C [Primary Care Provider] - Please follow up with your Primary Care Physician in: 1-2 weeks Test Results: Test results from this visit will be discussed in further detail at your follow- up appointment, if applicable. Please Follow Up With: Win Hill MD When: 07/01/2018 Proposed Discharge Date: 06/26/18
--- NOTE | 2018-06-26 12:15 | NURSING ---
Student nurse informs RN that patient's bp is running lower. 98/24. Patient sitting up in chair feels like he is going to pass out. RN assisted patient back to bed and placed in trendelenburg position. Spoke with Kristopher and informed him of same. New order for 500ml 0.9% Normal Saline bolus x1.
--- NOTE | 2018-06-26 12:21 | CASEMGMT ---
Social Work Note SW met with pt in regards to advanced directives. Pt denied wanting to complete at this time. SW informed pt that if he is still at [facility] Thursday SW can check with him then to complete documents. Pt states understanding. Leda Pelaez CONCRETE PUMP OPERATOR, VOCATIONAL REHAB CONSULTANT
--- NOTE | 2018-06-26 12:24 | PN_ITS ---
Patient Problems: Active and Suspected Problems Anemia (Acute) Subjective: Patient initially was feeling well this morning, much improved with no lightheadedness or shortness of breath. After receiving his blood pressure medications he is blood pressure decreased to systolic of 70s. He had return of symptoms including significant lightheadedness. His blood pressure medications have been held. He is receiving 1 more unit of blood. Will hold these medications overnight and reassess in the morning. - Physical Exam General: Alert, Oriented x3, Cooperative HEENT: Atraumatic, PERRLA, EOMI, Normocephalic Neck: Supple, No JVD, Negative Carotid Bruits Lungs: Clear to auscultation, Normal air movement Cardiovascular: Regular rate, Murmur - 3 out of 6 systolic murmur best heard over the left sternal border Abdomen: Bowel Sounds Present, Soft, Non Tender Extremities: No edema, Capillary Refill Less than 3 Seconds Skin: No rashes, No breakdown Musculoskeletal: No Tenderness to Palpation of Joints or Extremities Neurological: Cranial nerves II-XII grossly intact Psych/Mental Status: Normal Affect, Appropriate, Alert and oriented to time, place, person, mood and affect Vital Signs Temp Pulse Resp BP Pulse Ox 97.6 F L 78 18 81/22 L 100 06/26/18 11:44 06/26/18 11:44 06/26/18 11:44 06/26/18 11:44 06/26/18 11:44 Oxygen Delivery Method Room Air Weight: 215 lb 9.793 oz Body Mass Index (BMI) 32.8 Intake and Output for Last 24 Hours 06/24/18 06/25/18 06/26/18 23:59 23:59 23:59 Intake Total 1971 654 / 654 Output Total 2024 975 / 975 Balance -53 / -53 -321 / -321 Microbiology Past 72 Hours 06/25/18 08:55 Stool Occult Blood (RODNEY) - Final Stool Laboratory Tests Past 24 Hrs 06/24/18 06/24/18 06/24/18 11:03 11:03 11:03 WBC RBC Hgb Hct MCV MCH MCHC RDW RDW Differential Plt Count MPV Immature Gran % (Auto) Neut % (Auto) Lymph % (Auto) [place] % (Auto) Eos % (Auto) Baso % (Auto) Absolute Neuts (auto) Absolute Lymphs (auto) Total Counted Neutrophils % (Manual) Band Neutrophils % Lymphocytes % (Manual) Monocytes % (Manual) Basophils % (Manual) Blast Cells % Diff Path Review Platelet Estimate RBC Morphology Anisocytosis Ovalocytes Schistocytes Sodium Potassium Chloride Carbon Dioxide Anion Gap BUN Creatinine Estim Creat Clear Calc Est GFR (MDRD) Af Amer Est GFR (MDRD) Non-Af BUN/Creatinine Ratio Glucose Calcium Blood Type O POSITIVE Antibody Screen NEGATIVE Crossmatch See Detail See Detail See Detail 06/25/18 06/26/18 06/26/18 18:12 05:15 05:15 WBC 2.3 L 2.6 L RBC 1.95 L 2.48 L Hgb 6.9 L 8.4 L Hct 18.7 L 23.0 L MCV 95.9 H 92.7 MCH 35.4 H 33.9 H MCHC 36.9 H 36.5 H RDW TNP 23.4 H RDW Differential TNP 72.0 H Plt Count 43 L* 39 L* MPV 10.3 10.2 Immature Gran % (Auto) [employer] Neut % (Auto) Not Reportable [employer] Lymph % (Auto) [employer] [place] % (Auto) [employer] Eos % (Auto) [employer] Baso % (Auto) [employer] Absolute Neuts (auto) 1.0 L 1.0 L Absolute Lymphs (auto) 0.75 L 0.81 L Total Counted 100 100 Neutrophils % (Manual) 42 L 36 L Band Neutrophils % 1 2 Lymphocytes % (Manual) 32 31 Monocytes % (Manual) 7 5 Basophils % (Manual) 1 Blast Cells % 17 H* 26 H* Diff Path Review May foll May foll Platelet Estimate MKD DEC MKD DEC RBC Morphology RARE Anisocytosis 2+ 2+ Ovalocytes RARE Schistocytes RARE Sodium 127 L Potassium 4.9 Chloride 96 L Carbon Dioxide 20.0 L Anion Gap 11 BUN 68 H Creatinine 1.11 Estim Creat Clear Calc 59.05 Est GFR (MDRD) Af Amer 84 Est GFR (MDRD) Non-Af 69 BUN/Creatinine Ratio 61.3 H Glucose 178 H Calcium 7.9 L Blood Type Antibody Screen Crossmatch POC Glucose 06/26/18 06/25/18 06/25/18 06:59 22:13 17:00 POC Glucose 201 H 196 H 209 H 06/25/18 11:55 POC Glucose 197 H Medical Necessity - Tobacco Use Smoking Status: Former smoker Tobacco Use: Non-smoker Assessment/Plan All Active Problems Anemia (Acute) Testicular cancer (Resolved) Non-Hodgkin lymphoma (Resolved) Sepsis (Acute) Neutropenic fever (Acute) 1. Syncopy 2/2 worsening of Chronic anemia - MDS/AML - pt of Dr. Hill/Rafita, receiving an additional unit of blood today. Hold blood pressure medications for hypotension. Monitor overnight, recheck H&H tonight. 2. Pancytopenia 2/2 MDS 3. Hx CAD ok to continue statin 4. hx PAD with prior arterial stent 5. DMt2 with obesity - hold orals - SSI 6. HTN -metoprolol and lisinopril discontinued for now 7. Depression - paxil/cymbalta DVT ppx: SCDs This patient was seen by Kristopher Sosa PA-C under the supervision of Doctor Sorenson.
--- NOTE | 2018-06-26 14:48 | NURSING ---
Patient feeling much better. Sitting up at side of bed. Vitals improved. Hospitalist at bedside and updated on patient's condition and improved bp.
[2018-06-26 15:39] LABS: Hematocrit 19.9 % (40-54); Hemoglobin 7.2 g/dl (13.0-16.5)
[2018-06-26 16:21] LABS: Bedside Glucose 166 mg/dL (70-110)
[2018-06-26] MEDS: Acetaminophen 325 MG Tablet 650 MG PO (18:03)
--- NOTE | 2018-06-26 19:45 | NURSING ---
Report called to Martha at [facility].
--- NOTE | 2018-06-26 20:42 | NURSING ---
patient was transferred to [facility] at 2014. unit of blood was still infusing prior to transfer. patient went via EMS with the unit of PRBC infusing. TAR completed with how much volume patient received while still here.
[2018-06-26 21:30] LABS: Bedside Glucose 148 mg/dL (70-110)
--- NOTE | 2018-06-27 16:49 | PCM.DC.SUM ---
Discharge Date and Diagnosis Date of Admission: 06/25/18 Date of Discharge: 06/26/18 - Primary Discharge Diagnosis #1. Syncopy 2/2 worsening of acute on chronic anemia-etiology unclear #2.Pancytopenia 2/2 MDS #3 acute on chronic anemia-etiology unclear #4. CAD #5 PAD with prior arterial stent #6 DMt2 #7. HTN #8 Depression #9 myelodysplastic syndrome #10 acute hypotension secondary to acute anemia-etiology unclear #11 hyponatremia-etiology unclear, possibly secondary to diuretic usage #12 dehydration - Secondary Discharge Diagnosis Chronic Problems Myelodysplasia (myelodysplastic syndrome) (Chronic) CAD (coronary artery disease) (Chronic) PAD (peripheral artery disease) (Chronic) DM2 (diabetes mellitus, type 2) (Chronic) Hyperlipidemia (Chronic) HTN (hypertension) (Chronic) Aortic stenosis (Chronic) Leukemia (Chronic) Hospital Course and Treatment Operations: None Procedures: Blood transfusion Summary of Care Provided: The patient is a 73 year old M who was seen in the emergency room at [facility] with a chief complaint of generalized weakness. Patient had blood work done the day before and it revealed that he had anemia with a hemoglobin of 7. He was due to get transfused with packed red blood cells the day he was seen in the emergency room but he had 2 episodes of syncope the day before and felt that he needed to come to the ER for evaluation. Blood work obtained in the ER revealed a white blood cell count of 2.4, hemoglobin was 5.6, platelet count was 68,000. Chemistry studies showed a sodium of 123, BUN was 89, creatinine was 1.68. Patient was admitted to PCU, he was given blood transfusions but despite the blood transfusions, patient's hemoglobin remained low, he also had hypotension on 06/26/18 and this responded to fluids and additional transfusions of packed red blood cells. Due to the fact the patient had unexplained anemia during his hospitalization which could be caused from occult bleeding, it was felt that the patient will be better served to be transferred to a tertiary care hospital where they had GI coverage. On 06/26/18, patient was seen and examined: On examination he appeared in good spirits. Vital signs as documented. Skin warm and dry and without overt rashes. Neck without JVD. Lungs clear. Heart exam notable for regular rhythm, normal sounds and absence of murmurs, rubs or gallops. Abdomen unremarkable and without evidence of organomegaly, masses, or abdominal aortic enlargement. Extremities nonedematous. Neuro: Cranial nerves II through XII are grossly intact, no focal motor deficits were noted, sensation to light touch and pinprick intact. Psych: Patient is alert and oriented x3, he does not appear anxious or depressed On 06/26/18, patient was transferred to [facility] in stable condition - Physical Exam Vital Signs Temp Pulse Resp BP Pulse Ox 98.0 F 77 18 81/36 L 100 06/26/18 20:15 06/26/18 20:15 06/26/18 20:15 06/26/18 20:15 06/26/18 20:15 Oxygen Flow Rate (L/min) 2 Oxygen Delivery Method Room Air Weight: 97.8 kg Body Mass Index (BMI) 32.8 Intake and Output for Last 24 Hours 06/25/18 06/26/18 06/27/18 23:59 23:59 23:59 Intake Total 1971 / 1971 4771.3 / 4771.3 Output Total 2024 / 2024 2400 / 2400 Balance -53 / -53 2371.3 / 2371.3 Microbiology Past 72 Hours 06/25/18 08:55 Stool Occult Blood (RODNEY) - Final Stool Laboratory Tests Past 24 Hrs 06/24/18 06/24/18 11:03 11:03 Crossmatch See Detail See Detail POC Glucose 06/26/18 17:09 POC Glucose 148 H Discharge Activity: Return to Normal Activity Home Medications: Medications to take at Discharge Allopurinol [Zyloprim] 300 mg PO DAILY 07/24/14 Metformin(XR) [Glucophage Xr] 500 mg PO BID 07/24/14 Ferrous Sulfate [Iron] 325 mg PO BID 03/15/17 Multivitamin [Multiple Vitamins] 1 each PO DAILY 03/15/17 Nitroglycerin [Nitrostat] 0.4 mg SUBLINGUAL Q5M PRN 03/15/17 Ondansetron [Zofran] 8 mg PO Q8H PRN PRN 03/15/17 Paroxetine HCl [Paxil] 30 mg PO DAILY 03/15/17 Atorvastatin Calcium [Lipitor] 20 mg PO QHS 04/05/17 Metoprolol Tartrate [Lopressor (beta richard)] 12.5 mg PO BID 30 Days #30 tab 04/05/17 Potassium Chloride [Klor-Con] 20 meq PO BID 04/28/17 Magnesium Oxide [Magnesium] 400 mg PO 4X/DAY 06/09/17 Ascorbic Acid [Vitamin C with Jacklyn Hips] 1,000 mg PO DAILY 06/25/18 Echinacea 1,200 mg PO DAILY 06/25/18 Oxycodone HCl/Acetaminophen [Oxycodon-Acetaminophen 7.5-325] 1 each PO TID 06/25/18 Pantoprazole Sodium [Protonix] 40 mg PO DAILY #30 tablet 06/26/18 Following Prescrptions Were Given to Patient: Pantoprazole Sodium [Protonix] 40 mg PO DAILY #30 tablet Primary Care Physician: Denae Goldstein NP-C [Primary Care Provider] - Please follow up with your Primary Care Physician in: 1-2 weeks Please Follow Up With: Win Hill MD When: 07/01/2018 Please Follow Up With: Denae Goldstein NP-C Disposition: Acute care Hospital Minutes spent on discharge:: 32 Patient Condition:: Stable Medical Necessity - Tobacco Use Smoking Status: Former smoker Tobacco Use: Non-smoker Meaningful Use Info Meaningful Use Diagnoses (Choose all that apply): None applicable Code Visit Inpatient E&M: 90203 Disch Hosp
[2018-06-28 09:45] LABS: Pathologist Review Reviewed
[2018-06-28 14:43] LABS: Pathologist Review Reviewed
[2018-06-28 14:46] LABS: Pathologist Review Reviewed
== END 2018-06-26 20:15 | disposition short-term general hospital (02) | DRG 812 ==
LOC: ED 10:26 → PCU 10:46
PROVIDERS: Physician Assistant; Admitting Provider Internal Medicine; Emergency Provider Emergency Medicine; Family Provider Nurse Practitioner Primary Care; PCP Nurse Practitioner Primary Care; Visit Provider Internal Medicine
DX: D64.9 Anemia, unspecified (principal); E87.1 Hypo-osmolality and hyponatremia; D61.818 Other pancytopenia; D46.9 Myelodysplastic syndrome, unspecified; E86.0 Dehydration; I95.9 Hypotension, unspecified; R55 Syncope and collapse; I25.10 Atherosclerotic heart disease of native coronary artery without angina pectoris; F32.9 Major depressive disorder, single episode, unspecified; E11.9 Type 2 diabetes mellitus without complications; E66.9 Obesity, unspecified; I10 Essential (primary) hypertension; E78.5 Hyperlipidemia, unspecified; Z95.1 Presence of aortocoronary bypass graft; Z87.891 Personal history of nicotine dependence; Z68.32 Body mass index [BMI] 32.0-32.9, adult; Z79.84 Long term (current) use of oral hypoglycemic drugs; Z79.899 Other long term (current) drug therapy; Z85.47 Personal history of malignant neoplasm of testis; Z85.72 Personal history of non-Hodgkin lymphomas
CPT/HCPCS: 36415; 80048; 82274; 82962; 85014; 85018; 85025; 86644; 86850; 86900; 86920; 86922; 93005; 97802; 99285; J7030; J7040; P9016; P9040; A4216; J2405